=== PATIENT | female | born 1995 | race Two or more races ===

== ENCOUNTER 2018-05-10 04:00 | Emergency (ER) | payer BC ==
--- NOTE | 2018-05-10 04:29 | ED ---
Psychiatric Complaint - HPI Summary HPI Summary: 22 year old F BIB EMS and police to [facility] complains of suicidal ideation since one hour ago. Symptoms aggravated by nothing. Symptoms alleviated by nothing. Patient is intoxicated. She was out drinking with her friends. She went home by herself and began having suicidal thoughts. Patient has had suicidal thoughts before. She called her friends because she was scared of her thoughts, who then called 911. Patient has hx depression and anxiety. She currently does not have a therapist. She takes Prozac which is prescribed by [facility]. She has been inconsistent with her medication. - History Of Current Complaint Chief Complaint: EDMentalHealth Time Seen by Provider: 05/10/18 04:14 Hx Obtained From: Patient Onset/Duration: Sudden Onset, Lasting Hours - 1, Still Present Aggravating Factor(s): Nothing Alleviating Factor(s): Nothing - Allergies/Home Medications Allergies/Adverse Reactions: Allergies Allergy/AdvReac Type Severity Reaction Status Date / Time No Known Allergies Allergy Verified 05/10/18 04:15 Home Medications: Home Medications Fluoxetine HCl [Prozac] 20 mg PO DAILY 05/10/18 [History Confirmed 05/10/18] PMH/Surg Hx/FS Hx/Imm Hx Previously Healthy: No Sensory History: Reports: Hx Contacts or Glasses Opthamlomology History: Reports: Hx Contacts or Glasses Psychiatric History: Reports: Hx Anxiety, Hx Depression - Surgical History Surgery Procedure, Year, and Place: Tooth Implant 2014 Infectious Disease History: No Infectious Disease History: Denies: Traveled Outside the [place] in Last 30 Days - Social History Alcohol Use: Rare Hx Substance Use: No Substance Use Type: Reports: None Hx Tobacco Use: No Smoking Status (MU): Never Smoked Tobacco Review of Systems Negative: Fever Positive: Other - suicidal ideation, ETOH intoxication All Other Systems Reviewed And Are Negative: Yes Physical Exam - Summary Physical Exam Summary: Appearance: Well-appearing, Well-nourished, lying in bed comfortably Skin: Warm, dry, no obvious rash Eyes: sclera anicteric, no conjunctival pallor ENT: mucous membranes moist, pharynx appears normal Neck: Supple, nontender Respiratory: Clear to auscultation, no signs of respiratory distress Cardiovascular: Normal S1, S2. No murmurs. Normal distal pulses in tibial and radial bilaterally. Abdomen: Soft, nontender, normal active bowel sounds present Musculoskeletal: Normal, Strength/ROM Intact Neurological: A&Ox3, awake and alert, mentation is normal, speech is fluent and appropriate. Psychiatric: affect is normal, does not appear anxious or depressed. Patient is moderately intoxicated. Triage Information Reviewed: Yes Vital Signs On Initial Exam: Initial Vitals Temp Pulse Resp BP Pulse Ox 98.9 F 100 20 113/68 98 05/10/18 04:15 05/10/18 04:15 05/10/18 04:15 05/10/18 04:15 05/10/18 04:15 Vital Signs Reviewed: Yes Diagnostics - Vital Signs Vital Signs Temp Pulse Resp BP Pulse Ox 05/10/18 04:15 98.9 F 100 20 113/68 98 - Laboratory Result Diagrams: 05/10/18 04:29 05/10/18 10:21 Lab Statement: Any lab studies that have been ordered have been reviewed, and results considered in the medical decision making process. Course/Dx - Course Course Of Treatment: This is a 22-year-old woman coming in after a overdose of Motrin in a suicide gesture while intoxicated. She is medically cleared and will need a mental health evaluation once she is sober enough to undergo one. - Differential Dx/Clinical Impression Provider Diagnosis: Suicidal ideation Discharge - Sign-Out/Discharge Documenting (check all that apply): Sign-Out Patient Signing out patient TO: Kaushik Mendez - Awaiting MHE, pending dispo Receiving patient FROM: Agusto Perez - Discharge Plan Condition: Stable Disposition: ADMITTED TO [facility] Referrals: No Primary Care Phys,NOPCP [Primary Care Provider] - - Billing Disposition and Condition Condition: STABLE Disposition: Admitted to [facility] - Attestation Statements Document Initiated by Scribe: Yes Documenting Scribe: Carmina Craig Provider For Whom Jose De Jesus is Documenting (Include Credential): Agusto Perez M.D. Scribe Attestation: Carmina Mejia, scribed for Agusto Perez M.D. on 05/11/18 at 0211. Scribe Documentation Reviewed: Yes Provider Attestation: The documentation as recorded by the scribeCarmina accurately reflects the service I personally performed and the decisions made by me, Agusto Perez M.D.
[2018-05-10 04:37] LABS: ABS Basophils 0 10^3/ul (0-0.2); ABS Eosinophils 0 10^3/ul (0-0.6); ABS Lymphocytes 1.2 10^3/ul (1.0-4.8); ABS Monocytes 0.4 10^3/ul (0-0.8); ABS Neutrophils 4.2 10^3/ul (1.5-7.7); ABS Nucleated RBC 0 10^3/ul; Eosinophil % 0.8 % (0-6); Hematocrit 42 % (35-47); Hemoglobin 14.1 g/dl (12.0-16.0); Lymphocyte % 20.8 % (25-47); Mean Corpuscular HGB Conc 34 g/dl (31-36); Mean Corpuscular Hemoglobin 30 pg (27-31); Mean Corpuscular Volume 89 fL (80-97); Mean Platelet Volume 7.4 um3 (7.4-10.4); Nucleated Red Blood Cells % 0; Platelet Count 276 10^3/ul (150-450); Red Blood Count 4.69 10^6/ul (4.00-5.40); Red Cell Distribution Width 13 % (10.5-15); White Blood Count 5.9 10^3/ul (3.5-10.8)
[2018-05-10 04:55] LABS: EGFR Non-African American 97.5 (>60)
[2018-05-10 04:57] LABS: Urine Appearance Clear; Urine Blood Negative (Negative); Urine Ketones Negative (Negative); Urine Protein Negative (Negative); Urine Red Blood Cell Absent (Absent); Urine Specific Gravity 1.001 (1.010-1.030); Urine Urobilinogen Negative (Negative); Urine White Blood Cell Trace(0-5/hpf) (Absent)
[2018-05-10 04:58] LABS: Urine Color Colorless
--- NOTE | 2018-05-10 07:15 | ED ---
Progress - Progress Note Progress Note: This patient is signed out form Dr. Perez awaiting mental health evaluation. Course/Dx - Course Course Of Treatment: This is a 22-year-old woman coming in after a overdose of Motrin in a suicide gesture while intoxicated. She is medically cleared and will need a mental health evaluation once she is sober enough to undergo one. Patient signed out to Dr. Mattson pending MHE. - Diagnoses Provider Diagnoses: Suicidal ideation Discharge - Sign-Out/Discharge Documenting (check all that apply): Sign-Out Patient Signing out patient TO: Agusto Perez Receiving patient FROM: Kaushik Mendez - Discharge Plan Referrals: No Primary Care Phys,NOPCP [Primary Care Provider] - - Attestation Statements Document Initiated by Scribe: Yes Documenting Scribe: Isabel Garcia Provider For Whom Svetae is Documenting (Include Credential): Lenka Mendez MD Scribe Attestation: Isabel Mejia, scribed for Lenka Mendez MD on 05/11/18 at 0936. Scribe Documentation Reviewed: Yes Provider Attestation: The documentation as recorded by the scribeIsabel accurately reflects the service I personally performed and the decisions made by , Lenka Mendez MD
[2018-05-10 10:51] LABS: EGFR Non-African American 99.1 (>60)
[2018-05-10 19:56] VITALS: BP 105/66
== END 2018-05-10 20:45 | disposition short-term general hospital (02) ==
LOC: ED 04:00
DX: R45.851 Suicidal ideations (principal); F10.129 Alcohol abuse with intoxication, unspecified; F32.9 Major depressive disorder, single episode, unspecified
CPT/HCPCS: 36415; 80053; 80307; 80320; 80329; 81003; 81015; 84443; 84702; 85025; 87086; 93005; 99284; G0480

== ENCOUNTER 2018-07-27 01:21 | Emergency (ER) | payer BC ==
--- NOTE | 2018-07-27 03:44 | ED ---
Substance Abuse/Use - HPI Summary HPI Summary: Pt is a 23 year old F presenting to the ED with a chief complaint of intoxication. Her friends brought her in because she was vomiting and passed out , but she is presently feeling fine. - History Of Current Complaint Chief Complaint: EDSubstanceAbuse Stated Complaint: ETOH Time Seen by Provider: 07/27/18 03:27 Hx Obtained From: Patient Hx Last Menstrual Period: 07/07 Onset/Duration of Drug/ETOH Abuse: Hours Ingestion History: Type/Name Of Drug - EtOH Overdose Characteristics: Oral Severity Initially: Moderate Severity Currently: None Aggravating Factor(s): Nothing Alleviating Factor(s): Nothing Associated Signs And Symptoms: Vomiting - Allergies/Home Medications Allergies/Adverse Reactions: Allergies Allergy/AdvReac Type Severity Reaction Status Date / Time No Known Allergies Allergy Verified 05/10/18 04:15 PMH/Surg Hx/FS Hx/Imm Hx Previously Healthy: Yes Endocrine/Hematology History: Denies: Hx Diabetes Cardiovascular History: Denies: Hx Hypertension Sensory History: Reports: Hx Contacts or Glasses Opthamlomology History: Reports: Hx Contacts or Glasses Psychiatric History: Reports: Hx Anxiety, Hx Depression Denies: Hx Eating Disorder, Hx of Violent Episodes Against Others - Surgical History Surgery Procedure, Year, and Place: Tooth Implant 2014 - Immunization History Date of Tetanus Vaccine: utd Date of Influenza Vaccine: unk Infectious Disease History: Unable to Obtain/Confirm Infectious Disease History: Denies: Traveled Outside the US in Last 30 Days - Family History Known Family History: Negative: Renal Disease - Social History Alcohol Use: Occasionally Alcohol Amount: a lot Hx Substance Use: No Substance Use Type: Reports: None Hx Tobacco Use: No Smoking Status (MU): Never Smoked Tobacco Review of Systems Negative: Fever Positive: Vomiting All Other Systems Reviewed And Are Negative: Yes Physical Exam - Summary Physical Exam Summary: VITAL SIGNS: Reviewed. GENERAL: Patient is a well-developed and nourished female who is lying comfortable in the stretcher. Patient is not in any acute respiratory distress. HEAD AND FACE: No signs of trauma. No ecchymosis, hematomas or skull depressions. No sinus tenderness. EYES: PERRLA, EOMI x 2, No injected conjunctiva, no nystagmus. EARS: Hearing grossly intact. Ear canals and tympanic membranes are within normal limits. MOUTH: Oropharynx within normal limits. NECK: Supple, trachea is midline, no adenopathy, no JVD, no carotid bruit, no c- spine tenderness, neck with full ROM. CHEST: Symmetric, no tenderness at palpation LUNGS: Clear to auscultation bilaterally. No wheezing or crackles. CVS: Regular rate and rhythm, S1 and S2 present, no murmurs or gallops appreciated. ABDOMEN: Soft, non-tender. No signs of distention. No rebound no guarding, and no masses palpated. Bowel sounds are normal. EXTREMITIES: FROM in all major joints, no edema, no cyanosis or clubbing. NEURO: Alert and oriented x 3. No acute neurological deficits. Speech is normal and follows commands. SKIN: Dry and warm Triage Information Reviewed: Yes Vital Signs On Initial Exam: Initial Vitals Temp Pulse Resp BP Pulse Ox 97.8 F 82 16 108/70 99 07/27/18 01:35 07/27/18 01:35 07/27/18 01:35 07/27/18 01:35 07/27/18 01:35 Vital Signs Reviewed: Yes Diagnostics - Vital Signs Vital Signs Temp Pulse Resp BP Pulse Ox 07/27/18 01:35 97.8 F 82 16 108/70 99 - Laboratory Lab Statement: Any lab studies that have been ordered have been reviewed, and results considered in the medical decision making process. Course/Dx - Course Course Of Treatment: Pt is a 23 y/o F presenting to the ED intoxicated. Her friends brought her in originally because she was vomiting and passed out but she is presently feeling fine. If she can keep fluids down she will be sent home. The pt is stable. - Diagnoses Provider Diagnoses: Alcohol intoxication Discharge - Sign-Out/Discharge Documenting (check all that apply): Patient Departure - Discharge Plan Condition: Stable Disposition: HOME Referrals: No Primary Care Phys,NOPCP [Primary Care Provider] - - Attestation Statements Document Initiated by Scribe: Yes Documenting Scribe: Екатерина Carrillo Provider For Whom Marshallibe is Documenting (Include Credential): Wilbert Knapp MD. Scribe Attestation: Екатерина Mejia, scribed for Wilbert Knapp MD. on 07/27/18 at 0345.
[2018-07-27 03:55] VITALS: BP 119/78
== END 2018-07-27 03:55 | disposition home or self-care (01) ==
LOC: ED 01:21
DX: F10.129 Alcohol abuse with intoxication, unspecified (principal)
CPT/HCPCS: 99282

== ENCOUNTER 2018-12-29 19:58 | Emergency (ER) | payer BC ==
--- NOTE | 2018-12-29 20:33 | ED ---
Psychiatric Complaint - HPI Summary HPI Summary: Patient is a 23 y/o F presenting to ED with complaints of suicidal ideation for the past few days. Per triage note, "Seen by therapist today. Hx suicide attempt within past year. Denies definitive plan but has several ideas." Patient states that suicide attempt occurred this past April, claims that she took around 30-40 Advil tablets, notes she was intoxicated at the time of the episode and had been fighting with depression. She notes that she has been experiencing anxiety recently and in the past few days she has been "triggered" by various social interactions with friends and general stress. Patient is a student at [employer]. Patient is on Xanax. PMHx of depression, anxiety. On triage , pain is denied, nothing is noted to aggravate/alleviate Sx. Home medications and allergies are reviewed. - History Of Current Complaint Chief Complaint: EDSuicidal Time Seen by Provider: 12/29/18 20:16 Hx Obtained From: Patient Hx Last Menstrual Period: 07/07 Onset/Duration: Lasting Days, Still Present Timing: Days Severity Currently: None - pain denied Character: Depressed, Anxious Aggravating Factor(s): Recent Stress Alleviating Factor(s): Nothing Has Suicidal: Reports: Thoughts, With A Plan, Has Prior Attempt(s) - Allergies/Home Medications Allergies/Adverse Reactions: Allergies Allergy/AdvReac Type Severity Reaction Status Date / Time No Known Allergies Allergy Verified 05/10/18 04:15 Home Medications: Home Medications Cymbalta CAP* 30 mg PO DAILY 12/29/18 [History Confirmed 12/29/18] Xanax TAB* 0.25 mg PO DAILY PRN 12/29/18 [History Confirmed 12/29/18] PMH/Surg Hx/FS Hx/Imm Hx Endocrine/Hematology History: Denies: Hx Diabetes Cardiovascular History: Denies: Hx Hypertension Sensory History: Reports: Hx Contacts or Glasses Opthamlomology History: Reports: Hx Contacts or Glasses Psychiatric History: Reports: Hx Anxiety, Hx Depression Denies: Hx Eating Disorder, Hx of Violent Episodes Against Others - Surgical History Surgery Procedure, Year, and Place: Tooth Implant 2014 - Immunization History Date of Tetanus Vaccine: utd Date of Influenza Vaccine: unk Infectious Disease History: No Infectious Disease History: Denies: Traveled Outside the [place] in Last 30 Days - Family History Known Family History: Negative: Renal Disease - Social History Alcohol Use: Occasionally Alcohol Amount: a lot Hx Substance Use: No Substance Use Type: Reports: None Hx Tobacco Use: No Smoking Status (MU): Never Smoked Tobacco Review of Systems Negative: Fever - on vitals, temp is 98.1 F Psychological: Other - POSITIVE - SI Positive: Anxious, Depressed All Other Systems Reviewed And Are Negative: Yes Physical Exam - Summary Physical Exam Summary: VITAL SIGNS: Reviewed. GENERAL: Patient is a well-developed and nourished female who is lying comfortable in the stretcher. Patient is not in any acute respiratory distress. HEAD AND FACE: No signs of trauma. No ecchymosis, hematomas or skull depressions. No sinus tenderness. EYES: PERRLA, EOMI x 2, No injected conjunctiva, no nystagmus. EARS: Hearing grossly intact. Ear canals and tympanic membranes are within normal limits. MOUTH: Oropharynx within normal limits. NECK: Supple, trachea is midline, no adenopathy, no JVD, no carotid bruit, no c- spine tenderness, neck with full ROM. CHEST: Symmetric, no tenderness at palpation LUNGS: Clear to auscultation bilaterally. No wheezing or crackles. CVS: Regular rate and rhythm, S1 and S2 present, no murmurs or gallops appreciated. ABDOMEN: Soft, non-tender. No signs of distention. No rebound no guarding, and no masses palpated. Bowel sounds are normal. EXTREMITIES: FROM in all major joints, no edema, no cyanosis or clubbing. NEURO: Alert and oriented x 3. No acute neurological deficits. Speech is normal and follows commands. SKIN: Dry and warm Triage Information Reviewed: Yes Vital Signs On Initial Exam: Initial Vitals Temp Pulse Resp BP Pulse Ox 98.1 F 86 16 133/93 98 12/29/18 20:06 12/29/18 20:06 12/29/18 20:06 12/29/18 20:06 12/29/18 20:06 Vital Signs Reviewed: Yes Diagnostics - Vital Signs Vital Signs Temp Pulse Resp BP Pulse Ox 12/29/18 20:06 98.1 F 86 16 133/93 98 - Laboratory Lab Statement: Any lab studies that have been ordered have been reviewed, and results considered in the medical decision making process. Course/Dx - Course Course Of Treatment: Patient is a 23 y/o F presenting to ED with complaints of suicidal ideation for the past few days. Per triage note, "Seen by therapist today. Hx suicide attempt within past year. Denies definitive plan but has several ideas". Patient states that suicide attempt occurred this past April, claims that she took around 30-40 Advil tablets, notes she was intoxicated at the time of the episode and had been fighting with depression. She notes that she has been experiencing anxiety recently and in the past few days she has been "triggered" by various social interactions with friends and general stress. Patient is a student at [employer]. Patient is on Xanax. PMHx of depression , anxiety. On physical exam, patient expresses suicidal ideation. Patient was medically cleared for MHE. 2229 - Patient's case had been reviewed by Dr. Noriega. Patient will be discharged to home. She states that she is feeling better and will stay safe with a friend rosalio. Patient's parents will drive up tomorrow to [place] to be with her and will follow up with [facility]. - Differential Dx/Clinical Impression Provider Diagnosis: Depression - Physician Notifications Discussed Care Of Patient With: Fredrick Noriega Time Discussed With Above Provider: 22:30 Instructed by Provider To: Other - 2229 - Patient's case had been reviewed by Dr. Noriega. Patient will be discharged to home. She states that she is feeling better and will stay safe with a friend rosalio. Patient's parents will drive up tomorrow to [place] to be with her and will follow up with [facility]. Discharge - Sign-Out/Discharge Documenting (check all that apply): Patient Departure - discharge Patient Received Moderate/Deep Sedation with Procedure: No - Discharge Plan Condition: Stable Disposition: HOME Referrals: No Primary Care Phys,NOPCP [Primary Care Provider] - - Attestation Statements Document Initiated by Scribe: Yes Documenting Scribe: JOSE MIRZA Provider For Whom Jose De Jesus is Documenting (Include Credential): MD Marshall MEEKibsuzie Attestation: JOSE Mejia, aideeed for SHADI BELTRAN MD on 12/29/18 at 2305. Status of Scribe Document: Ready
[2018-12-29 22:51] VITALS: BP 124/82
== END 2018-12-29 22:48 | disposition home or self-care (01) ==
LOC: ED 19:58
DX: F32.9 Major depressive disorder, single episode, unspecified (principal)
CPT/HCPCS: 99285

== ENCOUNTER 2019-01-04 18:39 | Inpatient (IN) | payer BC ==
[2019-01-04 19:32] LABS: ABS Basophils 0 10^3/ul (0-0.2); ABS Eosinophils 0.1 10^3/ul (0-0.6); ABS Lymphocytes 1.5 10^3/ul (1.0-4.8); ABS Monocytes 0.4 10^3/ul (0-0.8); ABS Nucleated RBC 0 10^3/ul; Eosinophil % 1.8 %; Hematocrit 42 % (33-41); Hemoglobin 14.2 g/dL (12.0-16.0); Lymphocyte % 24.7 %; Mean Corpuscular HGB Conc 34 g/dL (31-36); Mean Corpuscular Hemoglobin 31 pg (27-31); Mean Corpuscular Volume 90 fL (80-97); Mean Platelet Volume 7.2 fL (7.4-10.4); Nucleated Red Blood Cells % 0; Platelet Count 297 10^3/uL (150-450); Red Blood Count 4.67 10^6 /uL (3.70-4.87); Red Cell Distribution Width 12 % (10.5-15)
[2019-01-04 19:49] LABS: ALT 11 U/L (7-52); AST 16 U/L (13-39); Albumin 4.3 g/dL (3.2-5.2); Albumin/Globulin Ratio 1.7 (1-3); Alkaline Phosphatase 46 U/L (34-104); Anion Gap 5 mmol/L (2-11); Blood Urea Nitrogen 12 mg/dL (6-24); CO2 Carbon Dioxide 28 mmol/L (22-32); Calcium 9.1 mg/dL (8.6-10.3); Chloride 105 mmol/L (101-111); EGFR African American 116.9 (>60); EGFR Non-African American 96.6 (>60); Globulin 2.6 g/dL (2-4); Glucose 85 mg/dL (70-100); Potassium 4.2 mmol/L (3.5-5.0); Sodium 138 mmol/L (135-145); Total Protein 6.9 g/dL (6.4-8.9)
[2019-01-04 19:56] LABS: HCG Pregnancy < 0.60 mIU/mL
--- NOTE | 2019-01-04 19:56 | ED ---
Psychiatric Complaint - HPI Summary HPI Summary: Patient is a 23-year-old female who presents emergency department for suicidal ideations. Patient is a student at [employer] and lives by herself. Patient notes a history of depression and currently follows with therapist at [employer]. She is currently on Cymbalta and Xanax as needed. Patient has been seen in the ER in the past after suicidal attempts. Patient was seen in the ER last week for similar symptoms. Patient states she has been feeling very depressed and suicidal over the last several days. Patient states today she tied an Frank wrap around her neck and fell asleep hoping it would harm her. Patient otherwise denies drug or alcohol use today or other suicidal attempts. Symptoms are severe in severity. No current modifying actress. - History Of Current Complaint Chief Complaint: EDSuicidal Time Seen by Provider: 01/04/19 19:15 Hx Obtained From: Patient Hx Last Menstrual Period: 07/07 - Allergies/Home Medications Allergies/Adverse Reactions: Allergies Allergy/AdvReac Type Severity Reaction Status Date / Time No Known Allergies Allergy Verified 01/04/19 18:45 PMH/Surg Hx/FS Hx/Imm Hx Previously Healthy: Yes Endocrine/Hematology History: Denies: Hx Diabetes Cardiovascular History: Denies: Hx Hypertension Sensory History: Reports: Hx Contacts or Glasses Opthamlomology History: Reports: Hx Contacts or Glasses Psychiatric History: Reports: Hx Anxiety, Hx Depression Denies: Hx Eating Disorder, Hx of Violent Episodes Against Others - Surgical History Surgery Procedure, Year, and Place: Tooth Implant 2014 - Immunization History Date of Tetanus Vaccine: utd Date of Influenza Vaccine: unk Infectious Disease History: No Infectious Disease History: Denies: Traveled Outside the [place] in Last 30 Days - Family History Known Family History: Negative: Renal Disease - Social History Occupation: Student Lives: Alone Alcohol Use: Occasionally Alcohol Amount: a lot Hx Substance Use: No Substance Use Type: Reports: None Hx Tobacco Use: No Smoking Status (MU): Never Smoked Tobacco Review of Systems Cardiovascular: Negative Respiratory: Negative Gastrointestinal: Negative Musculoskeletal: Negative Neurological: Negative Positive: Depressed, Other - SI All Other Systems Reviewed And Are Negative: Yes Physical Exam Triage Information Reviewed: Yes Vital Signs On Initial Exam: Initial Vitals Temp Pulse Resp BP Pulse Ox 98.4 F 82 16 124/79 97 01/04/19 18:45 01/04/19 18:45 01/04/19 18:45 01/04/19 18:45 01/04/19 18:45 Vital Signs Reviewed: Yes Appearance: Positive: Well-Appearing - Pt. sitting on bed in NAD. Pleasant and cooperative. Skin: Positive: Warm, Dry Head/Face: Positive: Normal Head/Face Inspection Eyes: Positive: Normal, EOMI Neurological: Positive: Normal, CN Intact II-III Psychiatric: Positive: Affect/Mood Appropriate Diagnostics - Vital Signs Vital Signs Temp Pulse Resp BP Pulse Ox 01/04/19 18:45 98.4 F 82 16 124/79 97 - Laboratory Lab Results: Lab Results 01/04/19 01/04/19 Range/Units 19:26 19:26 WBC 6.0 (3.5-10.8) 10^3/uL RBC 4.67 (3.70-4.87) 10^6 /uL Hgb 14.2 (12.0-16.0) g/dL Hct 42 H (33-41) % MCV 90 (80-97) fL MCH 31 (27-31) pg MCHC 34 (31-36) g/dL RDW 12 (10.5-15) % Plt Count 297 (150-450) 10^3/uL MPV 7.2 L (7.4-10.4) fL Neut % (Auto) 66.1 % Lymph % (Auto) 24.7 % [place] % (Auto) 7.0 % Eos % (Auto) 1.8 % Baso % (Auto) 0.4 % Absolute Neuts (auto) 4.0 (1.5-7.7) 10^3/ul Absolute Lymphs (auto) 1.5 (1.0-4.8) 10^3/ul Absolute Monos (auto) 0.4 (0-0.8) 10^3/ul Absolute Eos (auto) 0.1 (0-0.6) 10^3/ul Absolute Basos (auto) 0 (0-0.2) 10^3/ul Absolute Nucleated RBC 0 10^3/ul Nucleated RBC % 0 Sodium 138 (135-145) mmol/L Potassium 4.2 (3.5-5.0) mmol/L Chloride 105 (101-111) mmol/L Carbon Dioxide 28 (22-32) mmol/L Anion Gap 5 (2-11) mmol/L BUN 12 (6-24) mg/dL Creatinine 0.75 (0.51-0.95) mg/dL Est GFR ( Amer) 116.9 (>60) Est GFR (Non-Af Amer) 96.6 (>60) BUN/Creatinine Ratio 16.0 (8-20) Glucose 85 (70-100) mg/dL Calcium 9.1 (8.6-10.3) mg/dL Total Bilirubin 0.40 (0.2-1.0) mg/dL AST 16 (13-39) U/L ALT 11 (7-52) U/L Alkaline Phosphatase 46 (34-104) U/L Total Protein 6.9 (6.4-8.9) g/dL Albumin 4.3 (3.2-5.2) g/dL Globulin 2.6 (2-4) g/dL Albumin/Globulin Ratio 1.7 (1-3) TSH Pending Beta HCG, Quant Pending Salicylates Pending Acetaminophen Pending Serum Alcohol Pending Result Diagrams: 01/04/19 19:26 01/04/19 19:26 Lab Statement: Any lab studies that have been ordered have been reviewed, and results considered in the medical decision making process. Course/Dx - Course Course Of Treatment: Pt. presenting for SI. She is medically cleared. Pending MHE. Pt. moved to [facility] and MHE performed. Psychiatry was consulted who recommends admission. Plan for re-evaluation and admisison in the a.m. Pt. signed out to Dr. Perez. - Differential Dx/Clinical Impression Differential Diagnosis/HQI/PQRI: Positive: Depression, Suicidal Ideation Provider Diagnosis: Suicidal ideation, Depression Discharge - Sign-Out/Discharge Documenting (check all that apply): Sign-Out Patient Signing out patient TO: Agusto Perez - Discharge Plan Referrals: No Primary Care Phys,NOPCP [Primary Care Provider] -
[2019-01-04 20:18] LABS: Acetaminophen < 15 mcg/mL; Alcohol < 10 mg/dL (<10); Salicylate < 2.50 mg/dL (<30)
[2019-01-04 20:33] LABS: TSH (Thyroid Stimulating Horm) 1.16 mcIU/mL (0.34-5.60)
--- NOTE | 2019-01-05 02:45 | ED ---
Progress - Progress Note Progress Note: RECEIVING SIGN OUT AT SHIFT CHANGE FROM AVANI ANGELES PENDING MH ADMISSION. A 23 y/o F who is a [employer] student presents to ED for MHE due to SI. - Consult/PCP Time Called: 18:39 Course/Dx - Course Course Of Treatment: RECEIVING SIGN OUT AT SHIFT CHANGE FROM AVANI ANGELES PENDING MH ADMISSION. A 23 y/o F who is a [employer] student presents to ED for MHE due to SI. Pt will be signed out to Dr. Locke at shift change pending MH re-eval and admission. - Diagnoses Provider Diagnoses: Depression, Suicidal ideation Discharge - Sign-Out/Discharge Documenting (check all that apply): Sign-Out Patient, Receiving Sign-Out Signing out patient TO: Puneet Locke - pending MH admission Receiving patient FROM: Papi Angeles - pending MH admission Patient Received Moderate/Deep Sedation with Procedure: No - Discharge Plan Condition: Good [place] [place] Disposition and Condition Condition: GOOD Disposition: Psychiatric Facility [facility] - Attestation Statements Document Initiated by Scribe: Yes Documenting Scribe: Chidi Li Provider For Whom Scribe is Documenting (Include Credential): Dr. Agusto Perez MD Scribe Attestation: Chidi Mejia scribed for Dr. Agusto Perez MD on 01/05/19 at 1925. Scribe Documentation Reviewed: Yes Provider Attestation: The documentation as recorded by the Chidi peterson accurately reflects the service I personally performed and the decisions made by me, Dr. Agusto Perez MD Status of Scribe Document: Viewed
--- NOTE | 2019-01-05 06:59 | ED ---
Progress - Progress Note Progress Note: Patient is received as a sign-out from Dr. Perez to Dr. Locke at 0700 shift change pending re-eval and disposition. 0838 - Patient's case had been reviewed by Dr. Kaye, patient will be voluntarily admitted to [facility] [place]. - Consult/PCP Time Called: 18:39 Course/Dx - Diagnoses Provider Diagnoses: Depression, Suicidal ideation - Provider Notifications Discussed Care Of Patient With: Zoie Kaye Time Discussed With Above Provider: 08:38 Instructed by Provider To: Other - Patient's case had been reviewed by Dr. Kaye, patient will be voluntarily admitted to [facility]. Discharge - Sign-Out/Discharge Documenting (check all that apply): Patient Departure - admit Patient Received Moderate/Deep Sedation with Procedure: No - Discharge Plan Condition: Good Disposition: PSYCHIATRIC FACILITY[place] Referrals: No Primary Care Phys,NOPCP [Primary Care Provider] - - Attestation Statements Document Initiated by Scribe: Yes Documenting Scribe: JOSE MIRZA Provider For Whom Scribe is Documenting (Include Credential): KAITLYNN LOCKE MD Scribe Attestation: JOSE Mejia, scribed for KAITLYNN LOCKE MD on 01/05/19 at 0848. Status of Scribe Document: Ready
[2019-01-05] MEDS ORDERED: Al Hydrox/Mg Hydrox/Simet LIQ* 30 ML UDC PO PRN (08:49)
[2019-01-05] MEDS ORDERED: Acetaminophen TAB* 325 MG PO PRN (08:49)
--- NOTE | 2019-01-05 10:33 | HP ---
H&P (Free Text) History and Physical: Justification for admission: Immediate Safety. CC " Fine" The patient was brought to [facility] by friends after she voiced suicidal ideation with a plan to hang herself with a cloth. She felt abandoned by her two friends who started dating and have not been including her in things anymore. She said that they were a large part of her support system and not having access to them anymore makes her fell more anxious and depressed. She thought about wrapping a cloth around her next to end her life and called to tell her friend of her plan. Denied access to firearms or stockpiles of medications. She reported adequate sleep and appetite. The patient denied homicidal ideation intent or plan. The patient denied auditory and/ or visual hallucinations. MDD Reported feeling depressed or having diminished interest in hobbies or interests which were present in the past , for most of the time, lasting more than 2 weeks. Lately having a feelings of being empty inside, feelings of hopelessness or worthless. Denied unintentional weight loss or appetite . Denied interruption of sleep or feeling tired throughout the day. Denied loss of energy or lack of motivation to complete tasks. Anxiety Reported having panic attacks in the past and worries most the time time. Bipolar Denied symptoms of adalgisa such as having many ideas at once. Denied increased talkativeness where no one can interrupt. Denied feeling irritable most of the time while having an persistent abundance of energy most of the day without the use of energy drinks, stimulants, or recreational drug use. Denied an increase in intensity in goal directed activities. Denied having the decreased need to sleep for days , having prolonged elevated heighted mood , or feeling on top of the world. Denied impulsive risky sexual encounters. Denied spending money recklessly , going on spending sprees wiping out savings. Denied impulsively traveling out of town or country, having super benítez, and unrealistic wealth or fame. Psychosis Does not endorse hearing things that other people do not hear or seeing things other people do not see. Denied feeling that TV is making references. Denied feeling that people are spying , following , or reading their thoughts. Phobias: Patient denied having excessive fear of a particular thing or situation. Eating disorders: Patient denied having excessive eating habits or feelings of guilt after eating. Denied repeated episodes of self induced vomiting after eating. PTSD Denied flashbacks, nightmares and avoidance of a prior traumatic event. PAST PSYCHIATRIC HISTORY: Prior Diagnosis : Major depressive disorder, Generalized anxiety disorder History of past Psychiatric Hospitalizations: No prior psychiatric admission. History of past suicide/homicide attempts : 1 past suicide attempts by overdosing with 30 Advil. Denied past homicidal incidents. Outpatient follow-up: [facility] Medications: Past trials of medications include prozac, lexapro with poor clinical response, no adverse reactions. Current medications include cymbalta 60mg daily and xanax Guardianship: None. FAMILY HISTORY: - Suicide: Cousin attempted suicide. - Mental illness: Denied a history of mental health in immediate family members. - Substance abuse: Denied substance abuse among family members. SUBSTANCE ABUSE HISTORY: Denied using tobacco, heroin and cocaine other illicit substances. Denied abusing pills not prescribed . Denied past Substance abuse treatment. - EtOH: drinks during social occasions once per week. 3-4 drinks at most 8 drinks. No prior DUI or blackouts. - Substance abuse treatment: Denied past substance abuse treatment SOCIAL HISTORY: She was raised by both parents and is from [facility]. 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 She is single no children and lives in [place] - Legal history: Denied - service history: Denied PAST MEDICAL HISTORY: Skin Eczema. - Allergies: Denied drug or other allergies. Physical Exam: Please see ED note Mental Status Exam on Admission APPEARANCE : 23 year old female who appears stated age. Patient is not malodourous, and appears to have fair hygiene and grooming. BEHAVIOR: Cooperative , calm EYE CONTACT: Fair PSYCHOMOTOR ACTIVITY: No psychomotor agitation or retardation. MOVEMENTS: No abnormal movements observed. SPEECH : Normal rate, rhythm, volume and tone. MOOD : " Fine" AFFECT : Type is anxious, Range is restricted, depth is shallow, Mood congruent, Stable THOUGHT PROCESS: formulated and organized in a logical, linear goal directed manner. No flight of ideas , neologism (made up words) , perseveration , tangential , loose associations , or circumstantiality. THOUGHT CONTENT: no delusions, preoccupations, obsessions, phobias or preoccupations. PERCEPTION: No current auditory or visual hallucinations. Doesnt appear to be responding to internal cues. No evidence of depersonalization , de-realization, or illusions SUICIDALITY Recent suicidal ideation with plan. HOMICIDALITY Denied homicidal ideation, intent or plan. Insight/judgment: Poor insight and judgment ORIENTATION: Oriented to self, location, and time. Diagnosis on Admission:Major depressive disorder, Generalized anxiety disorder Assessment: 23 year old female with history of Major depressive disorder, Generalized anxiety disorder came to the hospital for suicidal ideation with plan and was admitted to the BSU at [facility]. Plan #Admit to BSU, Q15 minute observation. Start regular diet. Encourage participation in activities on the milieu. #Patient evaluated in ED and was determined by the emergency room Physician to be medically stable for admission to the BSU. # Justification for Admission: For immediate safety per outlined in the [place] Mental Hygiene Code. # Voluntary admission. The patient requires inpatient admission at this time to assure safety, receive treatment and work toward stabilization. # Labs ordered: CBC, CMP, UDS, TSH, HBA1c, TSH, Toxicology screen, Urine analysis, and lipid profile. #B-HCG was ordered and results are negative. # Obtain collateral information once release is signed. # Collaboration with Social Work to assist with disposition and after care. # Will increase cymbalta to 80mg and start buspar 15mg BID for anxiety # MMPI #Advised about dangers of combining cymbalta and xanax with alcohol. #Goals before discharge include: gain insight into mental illness. The risks, benefits, and alternative treatment options were discussed as well as of the risks of refusing treatment. After this discussion and an acknowledgement of this understanding was made. A risk/ benefit assessment of treatment was considered and discussed with the patient. When comparing the risks of treatment with the dangers of not receiving treatment, the benefits of treatment outweigh the treatment risks at this time. Risks of suicidal ideation , behavioral changes, dystonia, movement disorders, cardiac conduction changes , serotonin syndrome, metabolic risks and NMS were among some of the risks discussed. Acetaminophen (Tylenol Tab*) 650 mg PO Q4H PRN PRN Reason: for pain; or Temp >101 F Al Hydrox/Mg Hydrox/Simethicone (Maalox Plus*) 30 ml PO Q4H PRN PRN Reason: INDIGESTION Buspirone HCl (Buspar Tab *) 15 mg PO BID MELANIE Duloxetine HCl (Cymbalta Cap*) 60 mg PO DAILY MELANIE Multivitamins (Theragran Tab*) 1 tab PO DAILY MELANIE
[2019-01-05] MEDS ORDERED: DULoxetine DR CAP* 60 MG CAP.DR PO SCH (11:00)
[2019-01-05 11:10] LABS: Urine Appearance Cloudy; Urine Bacteria Absent (Absent); Urine Bilirubin Negative (Negative); Urine Blood Negative (Negative); Urine Color Yellow; Urine Glucose Negative (Negative); Urine Ketones Negative (Negative); Urine Nitrite Negative (Negative); Urine Protein Negative (Negative); Urine Red Blood Cell Trace(0-2/hpf) (Absent); Urine Specific Gravity 1.019 (1.010-1.030); Urine Squamous Epithelial Cell Present (Absent); Urine Urobilinogen Negative (Negative); Urine White Blood Cell Trace(0-5/hpf) (Absent)
[2019-01-05 11:16] LABS: Urine Benzodiazepine Screen Presumptive Positive (None Detect); Urine Opiates Screen None Detected (None Detect)
[2019-01-05] MEDS: Vitamin THERAPEUTIC TAB PO SCH (14:22)
[2019-01-05] MEDS: busPIRone TAB* 15 MG PO SCH ×2 (14:22→20:28)
[2019-01-05] MEDS ORDERED: DULoxetine DR CAP* 20 MG CAP.DR PO ONE (14:30)
[2019-01-05] MEDS ORDERED: DULoxetine DR CAP* 30 MG CAP.DR PO ONE (14:30)
--- NOTE | 2019-01-06 09:50 | PN ---
Subjective - Subjective Date of Service: 01/06/19 Service Type: [id number] Hosp care 35 min high complexity Subjective: Nursing Report: Patient was visible on unit, no chemical restraints or PRNs. Slept overnight without incident. Attending group activities. CC: "I am doing better Patient met with her family yesterday during visitation and remarked that the visit went well. She reported having less anxiety today and is not sure of it is from medication or being in the hospital. Patient was seen and evaluated by this provider. The patient reported she feels safe on the unit and is interacting with peers. She reported having an adequate appetite and sleep. The patient reports attending and participating in day groups. Per nursing no behavioral issues or overnight events reported. Patient reported that she is tolerating medications without side effects. Objective - General Observations Appears Stated Age: Yes Stature: WNL Posture: WNL Eye Contact: Average Behavior/Activity: WNL - Interaction Observations Attitude Towards Examiner: Cooperative Stated Mood: Anxious Affect: Restricted Speech Pattern/Tone: Clear Thought Process: Coherent Perception: WNL Thought Content: WNL, Self-Deprecatory Hallucination Type: None Delusion Type: None - Cognitive Function Orientation: A&O x 4 Level of Consciousness: Awake Cognition: WNL Insight: WNL Judgment Within Normal Limits: No Ability to Make Reasonable Decisions: Mildly Impaired - Medication Compliance Cooperative with Inpatient Medication Regimen: Yes - Group Participation Participates in Group Activities: Yes Assessment - Assessment Merits Inpatient Hospitalization: For Immediate Safety Clinical Impression: 23 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 Staff pass and computer access #The patient requires inpatient admission at this time to assure safety, receive treatment and work toward stabilization. #Family meeting scheduled for today # Collaboration with Social Work to assist with disposition and after care. # Cymbalta to 80mg and buspar &15mg BID for anxiety # MMPI Tentative Discharge or Saturday #So far patient feels that buspar may replace xanax use for anxiety Continued Medication Management: Continue Outpt Medication Medications: Current Medications Acetaminophen (Tylenol Tab*) 650 mg PO Q4H PRN PRN Reason: for pain; or Temp >101 F Al Hydrox/Mg Hydrox/Simethicone (Maalox Plus*) 30 ml PO Q4H PRN PRN Reason: INDIGESTION Buspirone HCl (Buspar Tab *) 15 mg PO BID [facility] Last Admin: 01/05/19 20:28 Dose: 15 mg Duloxetine HCl (Cymbalta Cap*) 80 mg PO DAILY [facility] Multivitamins (Theragran Tab*) 1 tab PO DAILY [facility] Last Admin: 01/05/19 14:22 Dose: Not Given - Discharge Plan Discharge Plan: Inpatient Hospitalization
[2019-01-06] MEDS: Vitamin THERAPEUTIC TAB PO SCH (10:16)
[2019-01-06] MEDS: busPIRone TAB* 15 MG PO SCH ×2 (10:16→20:47)
[2019-01-06] MEDS: DULoxetine DR CAP* 20 MG CAP.DR PO SCH (11:54)
[2019-01-07] MEDS: Vitamin THERAPEUTIC TAB PO SCH (09:21)
[2019-01-07] MEDS: busPIRone TAB* 15 MG PO SCH ×2 (09:21→21:10)
[2019-01-07] MEDS: DULoxetine DR CAP* 20 MG CAP.DR PO SCH (09:21)
--- NOTE | 2019-01-07 14:32 | PN ---
Subjective - Subjective Date of Service: 01/07/19 Service Type: [id number] Hosp care 35 min high complexity Subjective: Nursing Report: Patient was visible on unit, no chemical restraints or PRNs. Slept overnight without incident. Attending group activities. CC: "I am ready to go home Patient met with her family today and she is excited to leave tomorrow. She plans to go back to school and maybe completed summer school. Patient was seen and evaluated by this provider. The patient reported she feels safe on the unit and is interacting with peers. She reported having an adequate appetite and sleep. The patient reports attending and participating in day groups. Per nursing no behavioral issues or overnight events reported. Patient reported that she is tolerating medications without side effects. Objective - General Observations Appears Stated Age: Yes Stature: WNL Posture: WNL Eye Contact: Average Behavior/Activity: WNL - Interaction Observations Attitude Towards Examiner: Cooperative Stated Mood: Euthymic Affect: Blunted Speech Pattern/Tone: Clear Thought Process: Coherent Perception: WNL Thought Content: WNL Hallucination Type: None Delusion Type: None - Cognitive Function Orientation: A&O x 4 Level of Consciousness: Awake Cognition: WNL Insight: WNL Judgment Within Normal Limits: Yes - Medication Compliance Cooperative with Inpatient Medication Regimen: Yes - Group Participation Participates in Group Activities: Yes Assessment - Assessment Clinical Impression: 23 year old female [employer] student presented [place] [facility] [place] ideation and was admitted to the BSU Plan - Plan Treatment Plan: Name: NEENA CELESTE Birthdate: 1995 [id number] #Q30 minute observation. Staff pass and computer access #The patient requires inpatient admission at this time to assure safety, receive treatment and work toward stabilization. #Family meeting went well and family in agreement with discharge plan # Collaboration with Social Work to assist with disposition and after care. # Cymbalta to 80mg and buspar 15mg BID for anxiety # MMPI results consistent with presentation depression and anxiety Tentative Discharge Vital Signs Temp Pulse Resp BP Pulse Ox 97.9 F 105 14 101/84 99 01/07/19 08:33 01/07/19 08:33 01/07/19 11:28 01/07/19 08:33 01/07/19 08:33 Laboratory Results WBC 6.0 10^3/uL (3.5-10.8) 01/04/19: RBC 4.67 10^6 /uL (3.70-4.87) 01/04/19 19: Hgb 14.2 g/dL (12.0-16.0) 01/04/19 19: Hct 42 % (33-41) H 01/04/19 19: MCV 90 fL (80-97) 01/04/19 19: MCH 31 pg (27-31) 01/04/19: MCHC 34 g/dL (31-36) 01/04/19 19: RDW 12 % (10.5-15) 01/04/19: Plt Count 297 10^3/uL (150-450) 01/04/19: MPV 7.2 fL (7.4-10.4) L 01/04/19: Neut % (Auto) 66.1 % 01/04/19: Lymph % (Auto) 24.7 % 01/04/19: [place] % (Auto) 7.0 % 01/04/19 19: Eos % (Auto) 1.8 % 01/04/19: Baso % (Auto) 0.4 % 01/04/19: Absolute Neuts (auto) 4.0 10^3/ul (1.5-7.7) 01/04/19: Absolute Lymphs (auto) 1.5 10^3/ul (1.0-4.8) 01/04/19: Absolute Monos (auto) 0.4 10^3/ul (0-0.8) 01/04/19: Absolute Eos (auto) 0.1 10^3/ul (0-0.6) 01/04/19: Absolute Basos (auto) 0 10^3/ul (0-0.2) 01/04/19: Absolute Nucleated RBC 0 10^3/ul 01/04/19 19: Nucleated RBC % 0 01/04/19 19: Sodium 138 mmol/L (135-145) 01/04/19 19: Potassium 4.2 mmol/L (3.5-5.0) 01/04/19: Chloride 105 mmol/L (101-111) 01/04/19 19:26 Carbon Dioxide 28 mmol/L (22-32) 01/04/19 19:26 Anion Gap 5 mmol/L (2-11) 01/04/19 19:26 BUN 12 mg/dL (6-24) 01/04/19 19:26 Creatinine 0.75 mg/dL (0.51-0.95) 01/04/19 19:26 Est GFR ( Amer) 116.9 (>60) 01/04/19 19:26 Est GFR (Non-Af Amer) 96.6 (>60) 01/04/19 19:26 BUN/Creatinine Ratio 16.0 (8-20) 01/04/19 19:26 Glucose 85 mg/dL (70-100) 01/04/19 19:26 Hemoglobin A1c 5.2 % (4.0-5.6) 01/07/19 07:40 Calcium 9.1 mg/dL (8.6-10.3) 01/04/19 19:26 Total Bilirubin 0.40 mg/dL (0.2-1.0) 01/04/19 19:26 AST 16 U/L (13-39) 01/04/19 19:26 ALT 11 U/L (7-52) 01/04/19 19:26 Alkaline Phosphatase 46 U/L (34-104) 01/04/19 19:26 Total Protein 6.9 g/dL (6.4-8.9) 01/04/19 19: Albumin 4.3 g/dL (3.2-5.2) 01/04/19 19:26 Globulin 2.6 g/dL (2-4) 01/04/19 19:26 Albumin/Globulin Ratio 1.7 (1-3) 01/04/19 19:26 Triglycerides 49 mg/dL 01/07/19 07:40 Cholesterol 177 mg/dL 01/07/19 07:40 LDL Cholesterol 95 mg/dL 01/07/19 07:40 HDL Cholesterol 72.0 mg/dL 01/07/19 07:40 TSH 1.16 mcIU/mL (0.34-5.60) 01/04/19 19:26 Beta HCG, Quant < 0.60 mIU/mL 01/04/19 19:26 Urine Color Yellow 01/05/19 10:12 Urine Appearance Cloudy 01/05/19 10:12 Urine pH 5.0 (5-9) 01/05/19 10:12 Ur Specific [place] 1.019 (1.010-1.030) 01/05/19 10:12 Urine Protein Negative (Negative) 01/05/19 10:12 Urine Ketones Negative (Negative) 01/05/19 10:12 Urine Blood Negative (Negative) 01/05/19 10:12 Urine Nitrate Negative (Negative) 01/05/19 10:12 Urine Bilirubin Negative (Negative) 01/05/19 10:12 Urine Urobilinogen Negative (Negative) 01/05/19 10:12 Ur Leukocyte Esterase 1+ (Negative) A 01/05/19 10:12 Urine WBC (Auto) Trace(0-5/hpf) (Absent) 01/05/19 10:12 Urine RBC (Auto) Trace(0-2/hpf) (Absent) 01/05/19 10:12 Ur Squamous Epith Cells Present (Absent) A 01/05/19 10:12 Urine Bacteria Absent (Absent) 01/05/19 10:12 Urine Glucose Negative (Negative) 01/05/19 10:12 Salicylates < 2.50 mg/dL (<30) 01/04/19 19:26 Urine Opiates Screen None detected (None Detect) 01/05/19 10:12 Acetaminophen < 15 mcg/mL 01/04/19 19:26 Ur Barbiturates Screen None detected (None Detect) 01/05/19 10:12 Ur Phencyclidine Scrn None detected (None Detect) 01/05/19 10:12 Ur Amphetamines Screen None detected (None Detect) 01/05/19 10:12 U Benzodiazepines Scrn Presumptive positive (None Detect) A 01/05/19 10:12 Urine Cocaine Screen None detected (None Detect) 01/05/19 10:12 U Cannabinoids Screen None detected (None Detect) 01/05/19 10:12 Serum Alcohol < 10 mg/dL (<10) 01/04/19 19:26 Continued Medication Management: Continue Outpt Medication Medications: Current Medications Acetaminophen (Tylenol Tab*) 650 mg PO Q4H PRN PRN Reason: for pain; or Temp >101 F Al Hydrox/Mg Hydrox/Simethicone (Maalox Plus*) 30 ml PO Q4H PRN PRN Reason: INDIGESTION Buspirone HCl (Buspar Tab *) 15 mg PO BID [facility] Last Admin: 01/07/19 09:21 Dose: 15 mg Duloxetine HCl (Cymbalta Cap*) 80 mg PO DAILY [facility] Last Admin: 01/07/19 09:21 Dose: 80 mg Multivitamins (Theragran Tab*) 1 tab PO DAILY [facility] Last Admin: 01/07/19 09:21 Dose: 1 tab - Discharge Plan Discharge Plan: Inpatient Hospitalization
--- NOTE | 2019-01-07 16:16 | PN ---
BSU: Group Therapy Note - Service Type Service Type: [id number] Group Psychotherapy - Group Participation Patient Participating in Group: Yes Level of Group Participation: Attentive, Spontaneously Participate Relatedness to Group: Well Related - Boris participated well and enjoyed the group. She asked appropriate questions and took notes.
[2019-01-07] MEDS ORDERED: hydrOXYzine HCL TAB* 50 MG ONE (23:39)
[2019-01-08] MEDS ORDERED: hydrOXYzine HCL TAB* 50 MG PO PRN (00:12)
[2019-01-08 08:12] VITALS: BP 105/69
--- NOTE | 2019-01-08 08:56 | DS ---
Subjective - Subjective Service Types: [address] [facility] Day Mgmt complex over 30 min Discharge Date: 01/08/19 Subjective: CC" I had a great talk yesterday" I had a great talk with Analia yesterday. Patient reports that she has a great support system and that she plans to go back to school. She reported feeling happy to learn coping skills in group. She slept overnight and no behavioral incidents. Justification for admission: Immediate Safety. CC " Fine" The patient was brought to [facility] by friends after she voiced suicidal ideation with a plan to hang herself with a cloth. She felt abandoned by her two friends who started dating and have not been including her in things anymore. She said that they were a large part of her support system and not having access to them anymore makes her fell more anxious and depressed. She thought about wrapping a cloth around her next to end her life and called to tell her friend of her plan. Denied access to firearms or stockpiles of medications. She reported adequate sleep and appetite. The patient denied homicidal ideation intent or plan. The patient denied auditory and/ or visual hallucinations. MDD Reported feeling depressed or having diminished interest in hobbies or interests which were present in the past , for most of the time, lasting more than 2 weeks. Lately having a feelings of being empty inside, feelings of hopelessness or worthless. Denied unintentional weight loss or appetite . Denied interruption of sleep or feeling tired throughout the day. Denied loss of energy or lack of motivation to complete tasks. Anxiety Reported having panic attacks in the past and worries most the time time. Bipolar Denied symptoms of adalgisa such as having many ideas at once. Denied increased talkativeness where no one can interrupt. Denied feeling irritable most of the time while having an persistent abundance of energy most of the day without the use of energy drinks, stimulants, or recreational drug use. Denied an increase in intensity in goal directed activities. Denied having the decreased need to sleep for days , having prolonged elevated heighted mood , or feeling on top of the world. Denied impulsive risky sexual encounters. Denied spending money recklessly , going on spending sprees wiping out savings. Denied impulsively traveling out of town or country, having super benítez, and unrealistic wealth or fame. Psychosis Does not endorse hearing things that other people do not hear or seeing things other people do not see. Denied feeling that TV is making references. Denied feeling that people are spying , following , or reading their thoughts. Phobias: Patient denied having excessive fear of a particular thing or situation. Eating disorders: Patient denied having excessive eating habits or feelings of guilt after eating. Denied repeated episodes of self induced vomiting after eating. PTSD Denied flashbacks, nightmares and avoidance of a prior traumatic event. PAST PSYCHIATRIC HISTORY: Prior Diagnosis : Major depressive disorder, Generalized anxiety disorder History of past Psychiatric Hospitalizations: No prior psychiatric admission. History of past suicide/homicide attempts : 1 past suicide attempts by overdosing with 30 Advil. Denied past homicidal incidents. Outpatient follow-up: [facility] Medications: Past trials of medications include prozac, lexapro with poor clinical response, no adverse reactions. Current medications include cymbalta 60mg daily and xanax Guardianship: None. FAMILY HISTORY: - Suicide: Cousin attempted suicide. - Mental illness: Denied a history of mental health in immediate family members. - Substance abuse: Denied substance abuse among family members. SUBSTANCE ABUSE HISTORY: Denied using tobacco, heroin and cocaine other illicit substances. Denied abusing pills not prescribed . Denied past Substance abuse treatment. - EtOH: drinks during social occasions once per week. 3-4 drinks at most 8 drinks. No prior DUI or blackouts. - Substance abuse treatment: Denied past substance abuse treatment SOCIAL HISTORY: She was raised by both parents and is from [facility]. 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 She is single no children and lives in [place] - Legal history: Denied - service history: Denied PAST MEDICAL HISTORY: Skin Eczema. - Allergies: Denied drug or other allergies. Physical Exam: Please see ED note Mental Status Exam on Admission APPEARANCE : 23 year old female who appears stated age. Patient is not malodourous, and appears to have fair hygiene and grooming. BEHAVIOR: Cooperative , calm EYE CONTACT: Fair PSYCHOMOTOR ACTIVITY: No psychomotor agitation or retardation. MOVEMENTS: No abnormal movements observed. SPEECH : Normal rate, rhythm, volume and tone. MOOD : " Fine" AFFECT : Type is anxious, Range is restricted, depth is shallow, Mood congruent, Stable THOUGHT PROCESS: formulated and organized in a logical, linear goal directed manner. No flight of ideas , neologism (made up words) , perseveration , tangential , loose associations , or circumstantiality. THOUGHT CONTENT: no delusions, preoccupations, obsessions, phobias or preoccupations. PERCEPTION: No current auditory or visual hallucinations. Doesnt appear to be responding to internal cues. No evidence of depersonalization , de-realization, or illusions SUICIDALITY Recent suicidal ideation with plan. HOMICIDALITY Denied homicidal ideation, intent or plan. Insight/judgment: Poor insight and judgment ORIENTATION: Oriented to self, location, and time. Diagnosis on Admission:Major depressive disorder, Generalized anxiety disorder Assessment: 23 year old female with history of Major depressive disorder, Generalized anxiety disorder came to the hospital for suicidal ideation with plan and was admitted to the BSU at [facility]. Diagnosis on Discharge: Major Depressive Disorder, Generalized Anxiety Disorder. Condition at the time of discharge: At the time of discharge patient showed improvement of sleep and appetite. The patient was not a danger to self or others. The patient denied suicidal ideation , intent or plan. The patient denied homicidal targets, ideation, intent or plan. This patient participated in psychosocial rehabilitation and gained some insight into problems. The patient gained insight into mental illness, triggers, and treatment. The patient took medication as prescribed. The patient denied side effects of medication and objective signs of side effects were not evident. Therapy Resources were offered to the patient. Patient was given a supply of prescriptions at the time of discharge. The patient plans to attend follow up care with the follow up arrangements that were discussed and put in place. Patient was asked to keep appointments as scheduled, take medication as prescribed, have routine follow up care with their primary care physician and refrain from any use of alcohol or drugs. Objective - Appearance Appearance: Well Developed/Nourished Dysmorphic Features: No Hygiene: Normal Grooming: Well Kept - Behavior Psychomotor Activities: Normal Exhibits Abnormal Movement: No - Attitude and Relatedness Attitude and Relatedness: Cooperative Eye Contact: Good - Speech Quality: Unpressured Latencies: Normal Quantity: Appropriate - Mood Patient's Decription of Mood: "Good" - Affect Observed Affect: Non-labile Affect Consistent with: Euthymia - Thought Process Patient's Thought Process: Coherent Thought Content: No Passive Wish, No Suicidal Planning, No Homicidal Ideation, No Paranoid Ideation - Sensorium Experiencing Hallucinations: No, Sensorium is Clear Type of Hallucinations: Visual: No, Auditory: No, Command: No - Level of Consciousness Level of Consciousness: Alert Orientation: Yes Intact, Yes Orientated to Time, Yes Orientated to Place, Yes Orientated to Person - Impulse Control Impulse Control: Intact - Insight and Judgement Insight and Judgement: Good - Group Participation Particating in Group Activities: Yes - Medication Management Medication Management Adherence: Yes Treatment Course & Assessment Clinical Course & Impression: Hospital course part A: 23 year old female with history of Major depressive disorder, Generalized anxiety disorder came to the hospital for suicidal ideation with plan and was admitted to the BSU at [facility]. Hospital course part B: Labs ordered included CBC, CMP, UDS, TSH, HBA1c, TSH, Toxicology screen, Urine analysis, and lipid profile. Labs were reviewed and did not require the need for further evaluation. Vital signs were monitored during the course of admission. MMPI was ordered and indicated features of anxiety and depression consistent with clinical presentation and treatment plan. The patient was admitted to the adult behavioral unit and placed on 15 minute check for safety. At a later time the patient was on Q30 minute observation and staff pass privileges. With those limits being extended , there were no occurrence of behavioral incidents. The patient did well on the unit and went to groups. Interacted with peers had adequate sleep and regular appetite. Tolerated medication changes without side effects. Group therapy and services were offered. The risks, benefits, and alternative treatment options were discussed as well as of the risks of refusing treatment. Treatment associated risks discussed. After this discussion and made an acknowledgement of this understanding. Follow up care appointments were put in place for follow up care within 7 days of discharge. Improvements in patient from the time of admission include: Improved affect, sleep and decrease in anxiety. No longer suicidal and no longer having feelings of hopelessness. The patient expressed readiness for discharge home. The patient presents with a broader range of affect, and the absence of depressed mood, delusions, perceptual disturbances. The patient denied suicidal and or homicidal ideation intent or plan. Overall, the patient responded well to inpatient treatment as evidenced by their report of strengthening of coping mechanisms, reduced distress, and more positive outlook on circumstances. Of note there was an improvement of recognizing how emotional state can effect mood and behavior. Safety precautions were put in place which included involving the patient and their family to closely monitor for changes in mental state. In addition, implementing follow up care, screening for the need to remove/securing firearms , weapons and stockpile of medications. Patient/ family instructed to immediately call 911 should any safety concerns arise. Patient advised of the lethality and dangerousness of combining medications with pain medications and/ or with alcohol and acknowledged this understanding. B-HCG is negative for current . She was informed of the risks her current treatment has on in the event that she becomes in the future and was advised to talk with her outpatient healthcare provider about starting or stopping medications during . The patient was advised of the 24 hour / 7 days a week availability of the emergency room and to call 911 in the event of an emergency such as being suicidal and/ or homicidal. The patient was informed of the contact information for [facility] Behavioral Services Unit, Suicide Prevention and Crisis Services, National Suicide Prevention Lifeline, [facility], Alcoholics Anonymous, and [facility]. Medications started included restarting home medications cymbalta and increasing to 80mg daily. Xanax was discontinued and buspar 15mg BID was started twice a day. She felt that she did not need to continue using xanax and that buspar helped with her anxiety. Family meeting took place and parents are in agreement with discharge plan. She plans to return to school. Patient will be discharged to her apartment at [place] and will be picked up by her parents. Follow up appointments at [facility]. Patient was informed of follow up appointment times. See more details for follow of care in discharge plan. Risk factors: Age, single, history of mental illness. Prior suicide attempt. Protective factors: Currently no suicidal ideation, intent or plan. Has strong support system. No history of service. Currently no feelings of hopelessness, not in an occupation of social isolation, doesnt have multiple medical conditions, no family history of suicide, doesnt have access to firearms. Doesnt have command hallucinations and or psychotic features at this time. No history of substance abuse. Not a anniversary of a loss of a loved one. No changes in relationship status, housing, job, or school. Currently future orientated. Patient engaged in treatment and compliant with medication. Vital Signs Temp Pulse Resp BP Pulse Ox 98.0 F 80 16 105/69 99 01/08/19 07:29 01/08/19 07:29 01/08/19 07:29 01/08/19 07:29 01/08/19 07:29 Laboratory Results WBC 6.0 10^3/uL (3.5-10.8) 01/04/19 19: RBC 4.67 10^6 /uL (3.70-4.87) 01/04/19 19:26 Hgb 14.2 g/dL (12.0-16.0) 01/04/19 19: Hct 42 % (33-41) H 01/04/19 19: MCV 90 fL (80-97) 01/04/19 19: MCH 31 pg (27-31) 01/04/19 19: MCHC 34 g/dL (31-36) 01/04/19 19: RDW 12 % (10.5-15) 01/04/19 19: Plt Count 297 10^3/uL (150-450) 01/04/19 19: MPV 7.2 fL (7.4-10.4) L 01/04/19 19: Neut % (Auto) 66.1 % 01/04/19 19: Lymph % (Auto) 24.7 % 01/04/19 19: [place] % (Auto) 7.0 % 01/04/19 19: Eos % (Auto) 1.8 % 01/04/19 19: Baso % (Auto) 0.4 % 01/04/19 19: Absolute Neuts (auto) 4.0 10^3/ul (1.5-7.7) 01/04/19 19: Absolute Lymphs (auto) 1.5 10^3/ul (1.0-4.8) 01/04/19 19: Absolute Monos (auto) 0.4 10^3/ul (0-0.8) 01/04/19 19: Absolute Eos (auto) 0.1 10^3/ul (0-0.6) 01/04/19 19: Absolute Basos (auto) 0 10^3/ul (0-0.2) 01/04/19 19: Absolute Nucleated RBC 0 10^3/ul 01/04/19 19: Nucleated RBC % 0 01/04/19 19: Sodium 138 mmol/L (135-145) 01/04/19 19:26 Potassium 4.2 mmol/L (3.5-5.0) 01/04/19 19:26 Chloride 105 mmol/L (101-111) 01/04/19 19:26 Carbon Dioxide 28 mmol/L (22-32) 01/04/19 19:26 Anion Gap 5 mmol/L (2-11) 01/04/19 19:26 BUN 12 mg/dL (6-24) 01/04/19 19:26 Creatinine 0.75 mg/dL (0.51-0.95) 01/04/19 19:26 Est GFR ( Amer) 116.9 (>60) 01/04/19 19:26 Est GFR (Non-Af Amer) 96.6 (>60) 01/04/19 19:26 BUN/Creatinine Ratio 16.0 (8-20) 01/04/19 19:26 Glucose 85 mg/dL (70-100) 01/04/19 19:26 Hemoglobin A1c 5.2 % (4.0-5.6) 01/07/19 07:40 Calcium 9.1 mg/dL (8.6-10.3) 01/04/19 19:26 Total Bilirubin 0.40 mg/dL (0.2-1.0) 01/04/19 19:26 AST 16 U/L (13-39) 01/04/19 19:26 ALT 11 U/L (7-52) 01/04/19 19:26 Alkaline Phosphatase 46 U/L (34-104) 01/04/19 19:26 Total Protein 6.9 g/dL (6.4-8.9) 01/04/19 19:26 Albumin 4.3 g/dL (3.2-5.2) 01/04/19 19:26 Globulin 2.6 g/dL (2-4) 01/04/19 19:26 Albumin/Globulin Ratio 1.7 (1-3) 01/04/19 19:26 Triglycerides 49 mg/dL 01/07/19 07:40 Cholesterol 177 mg/dL 01/07/19 07:40 LDL Cholesterol 95 mg/dL 01/07/19 07:40 HDL Cholesterol 72.0 mg/dL 01/07/19 07:40 TSH 1.16 mcIU/mL (0.34-5.60) 01/04/19 19:26 Beta HCG, Quant < 0.60 mIU/mL 01/04/19 19:26 Urine Color Yellow 01/05/19 10:12 Urine Appearance Cloudy 01/05/19 10:12 Urine pH 5.0 (5-9) 01/05/19 10:12 Ur Specific [place] 1.019 (1.010-1.030) 01/05/19 10:12 Urine Protein Negative (Negative) 01/05/19 10:12 Urine Ketones Negative (Negative) 01/05/19 10:12 Urine Blood Negative (Negative) 01/05/19 10:12 Urine Nitrate Negative (Negative) 01/05/19 10:12 Urine Bilirubin Negative (Negative) 01/05/19 10:12 Urine Urobilinogen Negative (Negative) 01/05/19 10:12 Ur Leukocyte Esterase 1+ (Negative) A 01/05/19 10:12 Urine WBC (Auto) Trace(0-5/hpf) (Absent) 01/05/19 10:12 Urine RBC (Auto) Trace(0-2/hpf) (Absent) 01/05/19 10:12 Ur Squamous Epith Cells Present (Absent) A 01/05/19 10:12 Urine Bacteria Absent (Absent) 01/05/19 10:12 Urine Glucose Negative (Negative) 01/05/19 10:12 Salicylates < 2.50 mg/dL (<30) 01/04/19 19:26 Urine Opiates Screen None detected (None Detect) 01/05/19 10:12 Acetaminophen < 15 mcg/mL 01/04/19 19:26 Ur Barbiturates Screen None detected (None Detect) 01/05/19 10:12 Ur Phencyclidine Scrn None detected (None Detect) 01/05/19 10:12 Ur Amphetamines Screen None detected (None Detect) 01/05/19 10:12 U Benzodiazepines Scrn Presumptive positive (None Detect) A 01/05/19 10:12 Urine Cocaine Screen None detected (None Detect) 01/05/19 10:12 U Cannabinoids Screen None detected (None Detect) 01/05/19 10:12 Serum Alcohol < 10 mg/dL (<10) 01/04/19 19:26 Merits Inpatient Hospitalization: No Clear for Discharge: Adequate Clinical Respons Discharge Planning - Discharge Planning Discharge Plan: Outpatient Follow Up Outpatient Program: Counseling/Psych Services at [place] Recommendations for Continuing Care: Medication Management Medications: Current Medications Acetaminophen (Tylenol Tab*) 650 mg PO Q4H PRN PRN Reason: for pain; or Temp >101 F Al Hydrox/Mg Hydrox/Simethicone (Maalox Plus*) 30 ml PO Q4H PRN PRN Reason: INDIGESTION Buspirone HCl (Buspar Tab *) 15 mg PO BID [facility] Last Admin: 01/07/19 21:10 Dose: 15 mg Duloxetine HCl (Cymbalta Cap*) 80 mg PO DAILY [facility] Last Admin: 01/07/19 09:21 Dose: 80 mg Hydroxyzine HCl (Atarax Tab*) 50 mg PO Q6H PRN PRN Reason: ANXIETY OR INSOMNIA Last Admin: 01/07/19 23:40 Dose: 50 mg Multivitamins (Theragran Tab*) 1 tab PO DAILY [facility] Last Admin: 01/07/19 09:21 Dose: 1 tab Discharge Planning: Prescriptions provided for discharge [x] Yes [] No Follow up care details as per social work arrangements. Patient response to discharge plan: [x] eager for discharge [] agreeable with discharge plan [] ambivalent about discharge [] disagrees with discharge today
[2019-01-08] MEDS: DULoxetine DR CAP* 20 MG CAP.DR PO SCH (09:34)
[2019-01-08] MEDS: Vitamin THERAPEUTIC TAB PO SCH (09:34)
[2019-01-08] MEDS: busPIRone TAB* 15 MG PO SCH (09:34)
== END 2019-01-08 11:00 | disposition home or self-care (01) | DRG 754 ==
LOC: ED 18:39 → BSU 01-05 09:13
PROVIDERS: ADMIT Psychiatry & Neurology Psychiatry; ATTEND Psychiatry & Neurology Psychiatry
PROC: GZHZZZZ Group Psychotherapy (ICD-10-PCS; principal; 2019-01-07)
DX: F32.9 Major depressive disorder, single episode, unspecified (principal); R45.851 Suicidal ideations; F41.1 Generalized anxiety disorder; Z91.5 Personal history of self-harm; Z72.89 Other problems related to lifestyle; Z81.8 Family history of other mental and behavioral disorders
CPT/HCPCS: 36415; 80053; 80061; 80307; 80320; 80329; 81003; 81015; 83036; 84443; 84702; 85025; 87086; 90853; 99222; 99233; 99238; 99283; A9270-GY; G0480

== ENCOUNTER 2019-03-08 03:10 | Inpatient (IN) | payer BC ==
[2019-03-08] MEDS ORDERED: Charcoal ACTIVATED* 25 GM/120 ML BTL PO ONE (03:30)
[2019-03-08] MEDS ORDERED: NS 0.9% 1000 ML** 2,000 ML IV ONE (03:30)
[2019-03-08 03:52] LABS: ABS Eosinophils 0.1 10^3/ul (0-0.6); ABS Lymphocytes 1.5 10^3/ul (1.0-4.8); ABS Monocytes 0.4 10^3/ul (0-0.8); ABS Neutrophils 4.6 10^3/ul (1.5-7.7); Hematocrit 41 % (35-47); Hemoglobin 14.1 g/dL (12.0-16.0); Mean Corpuscular HGB Conc 35 g/dL (31-36); Mean Corpuscular Hemoglobin 31 pg (27-31); Mean Corpuscular Volume 88 fL (80-97); Nucleated Red Blood Cells % 0.1; Platelet Count 294 10^3/uL (150-450); Red Blood Count 4.61 10^6 /uL (3.70-4.87); Red Cell Distribution Width 13 % (10-15); White Blood Count 6.6 10^3/uL (3.5-10.8)
--- NOTE | 2019-03-08 03:54 | ED ---
Substance Abuse/Use - HPI Summary HPI Summary: This patient is a 23 year old F presenting to [facility] accompanied by a friend after she ingested 20 of her 15mg Buspirone at 0215 this morning. She reports alcohol use, but denies drug use. When asked why she decided to overdose on her prescription medication she repeats that she is tired and is generally vague. - History Of Current Complaint Chief Complaint: EDOverdose Stated Complaint: "OVERDOSE" PER PT Time Seen by Provider: 03/08/19 03:26 Hx Obtained From: Patient Hx Last Menstrual Period: 07/07 Onset/Duration of Drug/ETOH Abuse: Hours Ingestion History: Type/Name Of Drug - buspirone, Amount Ingested - [id number] Overdose Characteristics: Oral Associated Signs And Symptoms: Negative - Allergies/Home Medications Allergies/Adverse Reactions: Allergies Allergy/AdvReac Type Severity Reaction Status Date / Time No Known Allergies Allergy Verified 03/08/19 03:17 PMH/Surg Hx/FS Hx/Imm Hx Endocrine/Hematology History: Denies: Hx Diabetes Cardiovascular History: Denies: Hx Hypertension Musculoskeletal History: Reports: Hx Tendonitis Sensory History: Reports: Hx Contacts or Glasses Denies: Hx Hearing Aid Opthamlomology History: Reports: Hx Contacts or Glasses Neurological History: Reports: Hx Headaches Psychiatric History: Reports: Hx Anxiety, Hx Depression Denies: Hx Eating Disorder, Hx of Violent Episodes Against Others - Surgical History Surgery Procedure, Year, and Place: Tooth Implant 2014 - Immunization History Date of Tetanus Vaccine: utd Date of Influenza Vaccine: unk Infectious Disease History: No Infectious Disease History: Denies: Traveled Outside the [place] in Last 30 Days - Family History Known Family History: Negative: Renal Disease - Social History Alcohol Use: Daily Alcohol Amount: liquor Hx Substance Use: No Substance Use Type: Reports: None Hx Tobacco Use: No Smoking Status (MU): Never Smoked Tobacco Review of Systems Positive: Fatigue. Negative: Fever Positive: Depressed All Other Systems Reviewed And Are Negative: Yes Physical Exam - Summary Physical Exam Summary: Appearance: Well-appearing, Well-nourished, lying in bed comfortably, awake and fairly alert but is slightly somnolent; is able to answer questions but is quite vague; vitals noted for tachycardia Skin: Warm, dry, no obvious rash Eyes: sclera anicteric, no conjunctival pallor ENT: mucous membranes moist, pharynx appears normal Neck: Supple, nontender Respiratory: Clear to auscultation, no signs of respiratory distress Cardiovascular: Tachycardic noted. Normal S1, S2. No murmurs. Normal distal pulses in tibial and radial bilaterally. Abdomen: Soft, nontender, normal active bowel sounds present Musculoskeletal: Normal, Strength/ROM Intact Neurological: A&Ox3, awake and alert, mentation is normal, speech is fluent and appropriate Psychiatric: affect is normal, does not appear anxious or depressed Triage Information Reviewed: Yes Vital Signs On Initial Exam: Initial Vitals Temp Pulse Resp BP Pulse Ox 97.9 F 112 16 125/82 97 03/08/19 03:10 03/08/19 03:10 03/08/19 03:10 03/08/19 03:10 03/08/19 03:10 Vital Signs Reviewed: Yes Diagnostics - Vital Signs Vital Signs Temp Pulse Resp BP Pulse Ox 03/08/19 03:10 97.9 F 112 16 125/82 97 - Laboratory Lab Results: Lab Results 03/08/19 Range/Units 03:37 WBC 6.6 (3.5-10.8) 10^3/uL RBC 4.61 (3.70-4.87) 10^6 /uL Hgb 14.1 (12.0-16.0) g/dL Hct 41 (35-47) % MCV 88 (80-97) fL MCH 31 (27-31) pg MCHC 35 (31-36) g/dL RDW 13 (10-15) % Plt Count 294 (150-450) 10^3/uL MPV 7.0 L (7.4-10.4) fL Neut % (Auto) 69.3 % Lymph % (Auto) 23.0 % [place] % (Auto) 6.3 % Eos % (Auto) 1.0 % Baso % (Auto) 0.4 % Absolute Neuts (auto) 4.6 (1.5-7.7) 10^3/ul Absolute Lymphs (auto) 1.5 (1.0-4.8) 10^3/ul Absolute Monos (auto) 0.4 (0-0.8) 10^3/ul Absolute Eos (auto) 0.1 (0-0.6) 10^3/ul Absolute Basos (auto) 0.0 (0-0.2) 10^3/ul Absolute Nucleated RBC 0.0 10^3/ul Nucleated RBC % 0.1 Result Diagrams: 03/08/19 03:37 03/08/19 03:37 Lab Statement: Any lab studies that have been ordered have been reviewed, and results considered in the medical decision making process. - EKG 0337 Cardiac Rate: Tachycardia - 100 BPM EKG Rhythm: Sinus Tachycardia Summary of EKG Findings: NSR at 100 BPM, P waves, QRS complex, and T waves are within normal limits, T waves and intervals are normal, no ischemic changes. This is a normal EKG. Course/Dx - Course Course Of Treatment: 23 year old F presenting to [facility] accompanied by a friend after she ingested 20 of her 15mg Buspirone at 0215 this morning. Patient is fairly alert but is slightly somnolent. She is able to answer questions but is quite vague. Bloodwork obtained with a lactic acid of 2.3. Patient is given 2000mls of IVF and 50gm of Charcoal Per poison control patient will be medically cleared at 9:00am. Patient will be signed out to Dr. Mendez awaiting soberity and E. - Diagnoses Provider Diagnoses: Suicide attempt by drug overdose Discharge - Sign-Out/Discharge Documenting (check all that apply): Sign-Out Patient Signing out patient TO: Kaushik Mendez - [facility] Patient Received Moderate/Deep Sedation with Procedure: No - Discharge Plan Condition: Improved Disposition: PSYCHIATRIC FACILITY-[facility] [place] - Billing Disposition and Condition Condition: IMPROVED Disposition: Psychiatric Facility [facility] [place] - Attestation Statements Document Initiated by Svetae: Yes Documenting Scribe: Isabel Garcia Provider For Whom Jose De Jesus is Documenting (Include Credential): Agusto Perez MD Scribe Attestation: IIsabel, scribed for Agusto Perez MD on 03/12/19 at 1843. Scribe Documentation Reviewed: Yes Provider Attestation: The documentation as recorded by the Isabel peterson accurately reflects the service I personally performed and the decisions made by me, Agusto Perez MD Status of Scribe Document: Viewed
[2019-03-08 04:08] LABS: ALT 11 U/L (7-52); AST 17 U/L (13-39); Albumin 4.6 g/dL (3.2-5.2); Albumin/Globulin Ratio 1.7 (1-3); Alkaline Phosphatase 47 U/L (34-104); Anion Gap 10 mmol/L (2-11); BUN/Creatinine Ratio 9.8 (8-20); Blood Urea Nitrogen 9 mg/dL (6-24); CO2 Carbon Dioxide 23 mmol/L (22-32); Calcium 9.4 mg/dL (8.6-10.3); Chloride 107 mmol/L (101-111); EGFR African American 92.4 (>60); EGFR Non-African American 76.3 (>60); Globulin 2.7 g/dL (2-4); Glucose 103 mg/dL (70-100); Potassium 3.8 mmol/L (3.5-5.0); Sodium 140 mmol/L (135-145); Total Protein 7.3 g/dL (6.4-8.9)
[2019-03-08 04:11] LABS: Acetaminophen < 15 mcg/mL; Alcohol 118 mg/dL (<10); Salicylate < 2.50 mg/dL (<30)
[2019-03-08 04:15] LABS: HCG Pregnancy < 0.60 mIU/mL
[2019-03-08 04:23] LABS: Urine Benzodiazepine Screen None Detected (None Detect); Urine Opiates Screen None Detected (None Detect)
[2019-03-08 04:36] LABS: Urine Appearance Cloudy; Urine Bacteria Absent (Absent); Urine Bilirubin Negative (Negative); Urine Blood Negative (Negative); Urine Color Yellow; Urine Glucose Negative (Negative); Urine Ketones Negative (Negative); Urine Nitrite Negative (Negative); Urine Protein Negative (Negative); Urine Red Blood Cell Absent (Absent); Urine Specific Gravity 1.008 (1.010-1.030); Urine Squamous Epithelial Cell Present (Absent); Urine Urobilinogen Negative (Negative); Urine White Blood Cell Trace(0-5/hpf) (Absent)
--- NOTE | 2019-03-08 07:25 | ED ---
Progress - Progress Note Progress Note: This patient was signed out from Dr. Perez to Dr. Mendez upon shift change at 07 :00 03/08/19 pending sobriety and MHE. Per mental health curriculum development specialist, Dr. Retana has decided that the patient should be admitted. The patient is agreeable with this plan. Course/Dx - Course Course Of Treatment: This patient was signed out from Dr. Perez to Dr. Mendez upon shift change at 07:00 03/08/19 pending sobriety and MHE. Per mental health curriculum development specialist, Dr. Retana has decided that the patient should be admitted. The patient is agreeable with this plan. - Diagnoses Provider Diagnoses: Suicide attempt by drug overdose - Provider Notifications Discussed Care Of Patient With: Renny Retana Time Discussed With Above Provider: 13:02 Instructed by Provider To: Other - Per mental health curriculum development specialist, Dr. Retana has decided that the patient should be admitted. Discharge - Sign-Out/Discharge Documenting (check all that apply): Patient Departure - admit, Receiving Sign- Out Receiving patient FROM: Agusto Perez Patient Received Moderate/Deep Sedation with Procedure: No - Discharge Plan Condition: Fair Disposition: PSYCHIATRIC FACILITY[place] [place] - Billing Disposition and Condition Condition: FAIR Disposition: Psychiatric Facility [facility] - Attestation Statements Document Initiated by Scribe: Yes Documenting Scribe: Roly Serrano Provider For Whom Jose De Jesus is Documenting (Include Credential): Kaushik Mendez MD Scribe Attestation: IRoly, scribed for Kaushik Mendez MD on 03/08/19 at 1802. Scribe Documentation Reviewed: Yes Provider Attestation: The documentation as recorded by the Roly peterson accurately reflects the service I personally performed and the decisions made by me, Kris Mendez MD Status of Scribe Document: Viewed
--- NOTE | 2019-03-08 08:09 | PN ---
ED Flex Patient Progress Note Date of Service: 03/08/19 Subjective: This is a 23 year-old F who is pending admission to [facility] / transfer to another psychiatric facility / discharge to home / or being observed secondary to OD on buspar. Pt. examined in room 6 at 0800. She is resting comfortably with eyes closed. 1:1 watch outside of door. Objective: Vitals: Most recent vital signs documented below. General NAD Laboratory: Current laboratory results documented below. Assessment: OD Plan: Pending medical clearance at 9 and MHE. Vital Signs Temp Pulse Resp BP Pulse Ox 97.9 F 112 16 125/82 97 03/08/19 03:10 03/08/19 03:10 03/08/19 03:10 03/08/19 03:10 03/08/19 03:10 Lab Results - Entire Visit 03/08/19 03/08/19 03/08/19 03:40 03:40 03:37 WBC RBC Hgb Hct MCV MCH MCHC RDW Plt Count MPV Neut % (Auto) Lymph % (Auto) Dickenson % (Auto) Eos % (Auto) Baso % (Auto) Absolute Neuts (auto) Absolute Lymphs (auto) Absolute Monos (auto) Absolute Eos (auto) Absolute Basos (auto) Absolute Nucleated RBC Nucleated RBC % Sodium Potassium Chloride Carbon Dioxide Anion Gap BUN Creatinine Est GFR ( Amer) Est GFR (Non-Af Amer) BUN/Creatinine Ratio Glucose Lactic Acid 2.3 H* Calcium Total Bilirubin AST ALT Alkaline Phosphatase Total Protein Albumin Globulin Albumin/Globulin Ratio Beta HCG, Quant Urine Color Yellow Urine Appearance Cloudy Urine pH 7.0 Ur Specific [place] 1.008 L Urine Protein Negative Urine Ketones Negative Urine Blood Negative Urine Nitrate Negative Urine Bilirubin Negative Urine Urobilinogen Negative Ur Leukocyte Esterase Trace A Urine WBC (Auto) Trace(0-5/hpf) Urine RBC (Auto) Absent Ur Squamous Epith Cells Present A Urine Bacteria Absent Hyaline Casts Present A Urine Glucose Negative Urine Ascorbic Acid * A Salicylates Urine Opiates Screen None detected Acetaminophen Ur Barbiturates Screen None detected Ur Phencyclidine Scrn None detected Ur Amphetamines Screen None detected U Benzodiazepines Scrn None detected Urine Cocaine Screen None detected U Cannabinoids Screen None detected Serum Alcohol 03/08/19 03/08/19 03:37 03:37 WBC 6.6 RBC 4.61 Hgb 14.1 Hct 41 MCV 88 MCH 31 MCHC 35 RDW 13 Plt Count 294 MPV 7.0 L Neut % (Auto) 69.3 Lymph % (Auto) 23.0 Dickenson % (Auto) 6.3 Eos % (Auto) 1.0 Baso % (Auto) 0.4 Absolute Neuts (auto) 4.6 Absolute Lymphs (auto) 1.5 Absolute Monos (auto) 0.4 Absolute Eos (auto) 0.1 Absolute Basos (auto) 0.0 Absolute Nucleated RBC 0.0 Nucleated RBC % 0.1 Sodium 140 Potassium 3.8 Chloride 107 Carbon Dioxide 23 Anion Gap 10 BUN 9 Creatinine 0.92 Est GFR ( Amer) 92.4 Est GFR (Non-Af Amer) 76.3 BUN/Creatinine Ratio 9.8 Glucose 103 H Lactic Acid Calcium 9.4 Total Bilirubin 0.40 AST 17 ALT 11 Alkaline Phosphatase 47 Total Protein 7.3 Albumin 4.6 Globulin 2.7 Albumin/Globulin Ratio 1.7 Beta HCG, Quant < 0.60 Urine Color Urine Appearance Urine pH Ur Specific [place] Urine Protein Urine Ketones Urine Blood Urine Nitrate Urine Bilirubin Urine Urobilinogen Ur Leukocyte Esterase Urine WBC (Auto) Urine RBC (Auto) Ur Squamous Epith Cells Urine Bacteria Hyaline Casts Urine Glucose Urine Ascorbic Acid Salicylates < 2.50 Urine Opiates Screen Acetaminophen < 15 Ur Barbiturates Screen Ur Phencyclidine Scrn Ur Amphetamines Screen U Benzodiazepines Scrn Urine Cocaine Screen U Cannabinoids Screen Serum Alcohol 118 H
[2019-03-08] MEDS ORDERED: Acetaminophen TAB* 325 MG PO PRN (14:16)
[2019-03-08] MEDS ORDERED: Al Hydrox/Mg Hydrox/Simet LIQ* 30 ML UDC PO PRN (14:16)
[2019-03-08] MEDS ORDERED: hydrOXYzine HCL TAB* 25 MG PO PRN (21:17)
--- NOTE | 2019-03-09 10:17 | HP ---
H&P (Free Text) History and Physical: Justification for admission: Immediate Safety. CC " I took pills" The patient was at a constitution party with her friends and saw a alison that she liked, go home with another girl. When she returned to her apartment around 2 AM, she was upset and took 20 pills of buspar. Shortly after she told a friend. And the patient was brought to [facility] by one of her friends. She reported that her mother has been in the [facility] lately and so she hasnt talked much to her , which causes her to become anxious. She find that her anxiety is better ever since getting a emotion support dog. Her mother is fly back from the [facility] this week. She has been spending most of her time finishing up her last credits at [employer] and plans to finish by March. She denied access to firearms or stockpiles of medications. She reported fair sleep and diminished appetite. The patient denied homicidal ideation intent or plan. The patient denied auditory and/ or visual hallucinations. MDD She reported not report prolonged feelings of depression. She denied nor having diminished interest in hobbies or interests which were present in the past. She denied feelings of being empty inside, feelings of hopelessness or worthless. Denied interruption of sleep or feeling tired throughout the day. Denied loss of energy or lack of motivation to complete tasks. Anxiety Reported having panic attacks in the past and frequently finds herself worrying most of the time. Bipolar She described having mood swings of highs and lows. Some days she will feel great and super happy and other days feel depressed. She reported having many ideas at once and increased talkativeness where no one can interrupt. Some day she feels irritable and has a increase in intensity in goal directed activities. Denied having the decreased need to sleep for days , having prolonged elevated heightened mood , or feeling on top of the world. Denied impulsive risky sexual encounters. Denied spending money recklessly , going on spending sprees wiping out savings. Denied impulsively traveling out of town or country, having super benítez, and unrealistic wealth or fame. Psychosis Does not endorse hearing things that other people do not hear or seeing things other people do not see. Denied feeling that TV is making references. Denied feeling that people are spying , following , or reading their thoughts. Phobias: Patient denied having excessive fear of a particular thing or situation. Eating disorders: Patient denied having excessive eating habits or feelings of guilt after eating. Denied repeated episodes of self induced vomiting after eating. PTSD Denied flashbacks, nightmares and avoidance of a prior traumatic event. PAST PSYCHIATRIC HISTORY: Prior Diagnosis : Major depressive disorder, Generalized anxiety disorder. History of past Psychiatric Hospitalizations: 1 past admission History of past suicide/homicide attempts : 2 past suicide attempts by overdosing with pills. Denied past homicidal incidents. Outpatient follow-up: [facility] Medications: Past trials of medications include prozac, lexapro with poor clinical response, no adverse reactions. Current medications include cymbalta 80mg daily and buspar 15mg BID Guardianship: None. FAMILY HISTORY: - Suicide: Cousin made a non lethal suicide attempt. - Mental illness: Denied a history of mental health in immediate family members. - Substance abuse: Denied substance abuse among family members. SUBSTANCE ABUSE HISTORY: Denied using tobacco, heroin and cocaine other illicit substances. Denied abusing pills not prescribed. Denied past Substance abuse treatment. - EtOH: drinks during social occasions once per week. 3-4 drinks at most 8 drinks in one setting . No prior DUI or blackouts. - Substance abuse treatment: Denied past substance abuse treatment SOCIAL HISTORY: She was raised by both parents and is from [facility]. 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 She is single has no children and lives in [place]. - Legal history: Denied - service history: Denied PAST MEDICAL HISTORY: Skin Eczema. - Allergies: Denied drug or other allergies. Physical Exam: Please see ED note Mental Status Exam on Admission APPEARANCE : 23 year old female who appears stated age. Patient is not malodourous, and appears to have fair hygiene and grooming. BEHAVIOR: Cooperative , calm EYE CONTACT: Fair PSYCHOMOTOR ACTIVITY: No psychomotor agitation or retardation. MOVEMENTS: No abnormal movements observed. SPEECH : increased rate MOOD : " anxious" AFFECT : Type is anxious, Range is restricted, depth is shallow, Mood congruent, Stable THOUGHT PROCESS: formulated and organized in a logical, linear goal directed manner. No flight of ideas , neologism (made up words) , perseveration , tangential , loose associations , or circumstantiality. THOUGHT CONTENT: no delusions, preoccupations, obsessions, phobias or preoccupations. PERCEPTION: No current auditory or visual hallucinations. Doesnt appear to be responding to internal cues. No evidence of depersonalization , de-realization, or illusions SUICIDALITY Recent suicidal ideation with attempt. HOMICIDALITY Denied homicidal ideation, intent or plan. Insight/judgment: Fair insight and judgment ORIENTATION: Oriented to self, location, and time. Diagnosis on Admission: Cyclothymic disorder with anxious distress , Borderline personality disorder. Assessment: 23 year old female came to the hospital by friends after making a suicide attempt by ingesting 20 buspar pills. Plan #Admit to B[facility], Q15 minute observation. Start regular diet. Encourage participation in activities on the milieu. #Patient evaluated in ED and was determined by the emergency room Physician to be medically stable for admission to the BSU. # Justification for Admission: For immediate safety per outlined in the [place] Mental Hygiene Code. # Voluntary admission. The patient requires inpatient admission at this time to assure safety, receive treatment and work toward stabilization. # Labs ordered: CBC, CMP, UDS, TSH, HBA1c, TSH, Toxicology screen, Urine analysis, and lipid profile. #B-HCG was ordered and results are negative. # Obtain collateral information once release is signed. # Collaboration with Social Work to assist with disposition and after care. # Restart cymbalta 80mg and buspar 15mg BID for anxiety # Start lamotrigine 25mg daily for cyclothymic disorder. Advised to monitor for skin changes. #Goals before discharge include:Reduce / eradicate suicidal ideation The risks, benefits, and alternative treatment options were discussed as well as of the risks of refusing treatment. After this discussion and an acknowledgement of this understanding was made. A risk/ benefit assessment of treatment was considered and discussed with the patient. When comparing the risks of treatment with the dangers of not receiving treatment, the benefits of treatment outweigh the treatment risks at this time. Risks of suicidal ideation , behavioral changes, dystonia, movement disorders, cardiac conduction changes , skin changes, serotonin syndrome, metabolic risks were among some of the risks discussed. Acetaminophen (Tylenol Tab*) 650 mg PO Q4H PRN PRN Reason: PAIN or TEMP > 101 F Al Hydrox/Mg Hydrox/Simethicone (Maalox Plus*) 30 ml PO Q4H PRN PRN Reason: INDIGESTION Buspirone HCl (Buspar Tab *) 15 mg PO BID [facility] Duloxetine HCl (Cymbalta Cap*) 80 mg PO DAILY [facility] Hydroxyzine HCl (Atarax Tab*) 25 mg PO Q4H PRN PRN Reason: ANXIETY Lamotrigine (Lamictal Tab(*)) 25 mg PO DAILY [facility] Multivitamins (Theragran Tab*) 1 tab PO DAILY [facility] Last Admin: 03/09/19 10:30 Dose: Not Given Laboratory Results WBC 6.6 10^3/uL (3.5-10.8) 03/08/19 03:37 RBC 4.61 10^6 /uL (3.70-4.87) 03/08/19 03:37 Hgb 14.1 g/dL (12.0-16.0) 03/08/19 03:37 Hct 41 % (35-47) 03/08/19 03:37 MCV 88 fL (80-97) 03/08/19 03:37 MCH 31 pg (27-31) 03/08/19 03:37 MCHC 35 g/dL (31-36) 03/08/19 03:37 RDW 13 % (10-15) 03/08/19 03:37 Plt Count 294 10^3/uL (150-450) 03/08/19 03:37 MPV 7.0 fL (7.4-10.4) L 03/08/19 03:37 Neut % (Auto) 69.3 % 03/08/19 03:37 Lymph % (Auto) 23.0 % 03/08/19 03:37 [place] % (Auto) 6.3 % 03/08/19 03:37 Eos % (Auto) 1.0 % 03/08/19 03:37 Baso % (Auto) 0.4 % 03/08/19 03:37 Absolute Neuts (auto) 4.6 10^3/ul (1.5-7.7) 03/08/19 03:37 Absolute Lymphs (auto) 1.5 10^3/ul (1.0-4.8) 03/08/19 03:37 Absolute Monos (auto) 0.4 10^3/ul (0-0.8) 03/08/19 03:37 Absolute Eos (auto) 0.1 10^3/ul (0-0.6) 03/08/19 03:37 Absolute Basos (auto) 0.0 10^3/ul (0-0.2) 03/08/19 03:37 Absolute Nucleated RBC 0.0 10^3/ul 03/08/19 03:37 Nucleated RBC % 0.1 03/08/19 03:37 Sodium 140 mmol/L (135-145) 03/08/19 03:37 Potassium 3.8 mmol/L (3.5-5.0) 03/08/19 03:37 Chloride 107 mmol/L (101-111) 03/08/19 03:37 Carbon Dioxide 23 mmol/L (22-32) 03/08/19 03:37 Anion Gap 10 mmol/L (2-11) 03/08/19 03:37 BUN 9 mg/dL (6-24) 03/08/19 03:37 Creatinine 0.92 mg/dL (0.51-0.95) 03/08/19 03:37 Est GFR ( Amer) 92.4 (>60) 03/08/19 03:37 Est GFR (Non-Af Amer) 76.3 (>60) 03/08/19 03:37 BUN/Creatinine Ratio 9.8 (8-20) 03/08/19 03:37 Glucose 103 mg/dL (70-100) H 03/08/19 03:37 Lactic Acid 2.0 mmol/L (0.5-2.0) 03/08/19 08:53 Calcium 9.4 mg/dL (8.6-10.3) 03/08/19 03:37 Total Bilirubin 0.40 mg/dL (0.2-1.0) 03/08/19 03:37 AST 17 U/L (13-39) 03/08/19 03:37 ALT 11 U/L (7-52) 03/08/19 03:37 Alkaline Phosphatase 47 U/L (34-104) 03/08/19 03:37 Total Protein 7.3 g/dL (6.4-8.9) 03/08/19 03:37 Albumin 4.6 g/dL (3.2-5.2) 03/08/19 03:37 Globulin 2.7 g/dL (2-4) 03/08/19 03:37 Albumin/Globulin Ratio 1.7 (1-3) 03/08/19 03:37 Beta HCG, Quant < 0.60 mIU/mL 03/08/19 03:37 Urine Color Yellow 03/08/19 03:40 Urine Appearance Cloudy 03/08/19 03:40 Urine pH 7.0 (5-9) 03/08/19 03:40 Ur Specific [place] 1.008 (1.010-1.030) L 03/08/19 03:40 Urine Protein Negative (Negative) 03/08/19 03:40 Urine Ketones Negative (Negative) 03/08/19 03:40 Urine Blood Negative (Negative) 03/08/19 03:40 Urine Nitrate Negative (Negative) 03/08/19 03:40 Urine Bilirubin Negative (Negative) 03/08/19 03:40 Urine Urobilinogen Negative (Negative) 03/08/19 03:40 Ur Leukocyte Esterase Trace (Negative) A 03/08/19 03:40 Urine WBC (Auto) Trace(0-5/hpf) (Absent) 03/08/19 03:40 Urine RBC (Auto) Absent (Absent) 03/08/19 03:40 Ur Squamous Epith Cells Present (Absent) A 03/08/19 03:40 Urine Bacteria Absent (Absent) 03/08/19 03:40 Hyaline Casts Present (Absent) A 03/08/19 03:40 Urine Glucose Negative (Negative) 03/08/19 03:40 Urine Ascorbic Acid * (Negative) A 03/08/19 03:40 Salicylates < 2.50 mg/dL (<30) 03/08/19 03:37 Urine Opiates Screen None detected (None Detect) 03/08/19 03:40 Acetaminophen < 15 mcg/mL 03/08/19 03:37 Ur Barbiturates Screen None detected (None Detect) 03/08/19 03:40 Ur Phencyclidine Scrn None detected (None Detect) 03/08/19 03:40 Ur Amphetamines Screen None detected (None Detect) 03/08/19 03:40 U Benzodiazepines Scrn None detected (None Detect) 03/08/19 03:40 Urine Cocaine Screen None detected (None Detect) 03/08/19 03:40 U Cannabinoids Screen None detected (None Detect) 03/08/19 03:40 Serum Alcohol 118 mg/dL (<10) H 03/08/19 03:37 Vital Signs 06/23/19 06/23/19 06/23/19 10:45 11:00 11:15 Temperature Pulse Rate 107 118 92 Respiratory 15 17 23 Rate Blood Pressure 113/68 120/78 (mmHg) O2 Sat by Pulse 97 99 98 Oximetry 03/08/19 03/08/19 03/08/19 11:45 12:00 12:15 Temperature Pulse Rate 97 91 97 Respiratory 16 16 30 Rate Blood Pressure 115/76 120/84 (mmHg) O2 Sat by Pulse 99 98 97 Oximetry 03/08/19 03/08/19 03/08/19 12:45 13:00 13:15 Temperature Pulse Rate 114 93 110 Respiratory 18 22 15 Rate Blood Pressure 121/80 117/76 (mmHg) O2 Sat by Pulse 97 97 98 Oximetry 03/08/19 03/08/19 03/08/19 13:45 14:00 14:29 Temperature 99.0 F Pulse Rate 110 102 99 Respiratory 19 17 16 Rate Blood Pressure 99/76 121/73 (mmHg) O2 Sat by Pulse 98 96 99 Oximetry 03/08/19 03/08/19 14:30 14:40 Temperature 98.6 F Pulse Rate 95 Respiratory 18 16 Rate Blood Pressure 123/74 (mmHg) O2 Sat by Pulse 98 Oximetry
[2019-03-09] MEDS: Vitamin THERAPEUTIC TAB PO SCH (10:30)
[2019-03-09] MEDS: DULoxetine DR CAP* 20 MG CAP.DR PO SCH (14:16)
[2019-03-09] MEDS: lamoTRIgine TAB(*) 25 MG PO SCH (14:17)
[2019-03-10] MEDS: Vitamin THERAPEUTIC TAB PO SCH (09:58)
[2019-03-10] MEDS: busPIRone TAB* 15 MG PO SCH ×2 (09:58→20:46)
[2019-03-10] MEDS: lamoTRIgine TAB(*) 25 MG PO SCH (09:58)
[2019-03-10] MEDS: DULoxetine DR CAP* 20 MG CAP.DR PO SCH (09:58)
--- NOTE | 2019-03-10 11:09 | PN ---
Subjective - Subjective Date of Service: 03/10/19 Service Type: 81080 Hosp care 35 min high complexity Subjective: Nursing Report: Patient was visible on unit, no chemical restraints or PRNs. Slept overnight without incident. Attending group activities. CC: "Fine Patient was seen and evaluated today. The patient reported feeling anxious when another peer yelled at her. She was able to cope with it and tolerate it without further issue. She reported having an adequate appetite and sleep. The patient reports attending and participating in day groups. Per nursing no behavioral issues or overnight events reported. Patient reported that she is tolerating medications without side effects. Objective - General Observations Appears Stated Age: Yes Stature: WNL Posture: WNL Eye Contact: Average Behavior/Activity: Accelerated - Interaction Observations Attitude Towards Examiner: Anxious Stated Mood: Anxious Affect: Full Speech Pattern/Tone: Appropriate Thought Process: Over Inclusive Perception: WNL Thought Content: WNL Hallucination Type: None Delusion Type: None - Cognitive Function Orientation: A&O x 4 Level of Consciousness: Awake Cognition: WNL - Medication Compliance Cooperative with Inpatient Medication Regimen: Yes - Group Participation Participates in Group Activities: Yes Assessment - Assessment Merits Inpatient Hospitalization: For Immediate Safety Clinical Impression: 23 year old female came to the hospital brought by friends after making a suicide attempt by ingesting 20 buspar pills. Plan - Plan Treatment Plan: Name: NEENA CELESTE Birthdate: 1995 [id number] Plan #Q30 minute observation with staff pass and computer access. # Voluntary admission. The patient requires inpatient admission at this time to assure safety, receive treatment and work toward stabilization. # Parents plan to visit Saturday or . # Collaboration with General Surgeon Alma Delia Salguero # Continue cymbalta 80mg and buspar 15mg BID for anxiety # Continue lamotrigine 25mg daily for cyclothymic disorder with plan to increase in 2 weeks in outpatient setting . Advised to monitor for skin changes. #Goals before discharge include:Reduce / eradicate suicidal ideation Tentative Discharge / Saturday Sodium 140 mmol/L (135-145) 03/08/19 03:37 Potassium 3.8 mmol/L (3.5-5.0) 03/08/19 03:37 BUN 9 mg/dL (6-24) 03/08/19 03:37 Creatinine 0.92 mg/dL (0.51-0.95) 03/08/19 03:37 Calcium 9.4 mg/dL (8.6-10.3) 03/08/19 03:37 AST 17 U/L (13-39) 03/08/19 03:37 ALT 11 U/L (7-52) 03/08/19 03:37 Vital Signs Temp Pulse Resp BP Pulse Ox 98.7 F 67 12 116/67 100 03/10/19 06:00 03/10/19 06:00 03/10/19 06:00 03/10/19 06:00 03/10/19 06:00 Continued Medication Management: Continue Outpt Medication Medications: Current Medications Acetaminophen (Tylenol Tab*) 650 mg PO Q4H PRN PRN Reason: PAIN or TEMP > 101 F Al Hydrox/Mg Hydrox/Simethicone (Maalox Plus*) 30 ml PO Q4H PRN PRN Reason: INDIGESTION Buspirone HCl (Buspar Tab *) 15 mg PO BID [facility] Last Admin: 03/10/19 09:58 Dose: 15 mg Duloxetine HCl (Cymbalta Cap*) 80 mg PO DAILY [facility] Last Admin: 03/10/19 09:58 Dose: 80 mg Hydroxyzine HCl (Atarax Tab*) 25 mg PO Q4H PRN PRN Reason: ANXIETY Lamotrigine (Lamictal Tab(*)) 25 mg PO DAILY [facility] Last Admin: 03/10/19 09:58 Dose: 25 mg Multivitamins (Theragran Tab*) 1 tab PO DAILY [facility] Last Admin: 03/10/19 09:58 Dose: 1 tab - Discharge Plan Discharge Plan: Inpatient Hospitalization
[2019-03-11] MEDS: busPIRone TAB* 15 MG PO SCH ×2 (09:33→19:54)
[2019-03-11] MEDS: DULoxetine DR CAP* 20 MG CAP.DR PO SCH (09:34)
[2019-03-11] MEDS: lamoTRIgine TAB(*) 25 MG PO SCH (09:34)
[2019-03-11] MEDS: Vitamin THERAPEUTIC TAB PO SCH (09:35)
--- NOTE | 2019-03-11 11:05 | PN ---
Subjective - Subjective Date of Service: 03/11/19 Service Type: 83587 Hosp care 35 min high complexity Subjective: Nursing Report: Patient was visible on unit, no chemical restraints or PRNs. Slept overnight without incident. Attending group activities. CC: "Okay Patient was seen and evaluated today in the common room. She went to groups today and ate breakfast. The patient reported she feels safe on the unit and is interacting with peers. She reported having an adequate appetite and sleep. The patient reports attending and participating in day groups. Per nursing no behavioral issues or overnight events reported. Patient reported that she is tolerating medications without side effects. Her parents are expected to come tomorrow around 11am. Objective - General Observations Appearance: Neat Appears Stated Age: Yes Stature: WNL Posture: WNL Eye Contact: Average Behavior/Activity: Accelerated - Interaction Observations Attitude Towards Examiner: Anxious Stated Mood: Anxious Affect: Bright Speech Pattern/Tone: Clear Thought Process: Coherent, Over Inclusive Perception: WNL Thought Content: WNL Hallucination Type: None Delusion Type: None - Cognitive Function Orientation: A&O x 4 Level of Consciousness: Awake Cognition: WNL - Medication Compliance Cooperative with Inpatient Medication Regimen: Yes - Group Participation Participates in Group Activities: Yes Assessment - Assessment Merits Inpatient Hospitalization: For Immediate Safety Clinical Impression: 23 year old female came to the hospital brought by friends after making a suicide attempt by ingesting 20 buspar pills. Plan - Plan Treatment Plan: Name: NEENA CELESTE Birthdate: 1995 [id number] Plan #Q30 minute observation with staff pass and computer access. # Voluntary admission. The patient requires inpatient admission at this time to assure safety, receive treatment and work toward stabilization. 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 No reported skin changes. # Last MMPI indicated features of anxiety and depression consistent with clinical presentation and treatment plan. #Goals before discharge include: Reduce / eradicate suicidal ideation Tentative Discharge Sodium 140 mmol/L (135-145) 03/08/19 03:37 Potassium 3.8 mmol/L (3.5-5.0) 03/08/19 03:37 BUN 9 mg/dL (6-24) 03/08/19 03:37 Creatinine 0.92 mg/dL (0.51-0.95) 03/08/19 03:37 Calcium 9.4 mg/dL (8.6-10.3) 03/08/19 03:37 AST 17 U/L (13-39) 03/08/19 03:37 ALT 11 U/L (7-52) 03/08/19 03:37 Vital Signs Temp Pulse Resp BP Pulse Ox 98.2 F 73 16 105/72 100 03/11/19 07:00 03/11/19 07:00 03/11/19 07:00 03/11/19 07:00 03/11/19 07:00 Continued Medication Management: Start Medication Medications: Current Medications Acetaminophen (Tylenol Tab*) 650 mg PO Q4H PRN PRN Reason: PAIN or TEMP > 101 F Al Hydrox/Mg Hydrox/Simethicone (Maalox Plus*) 30 ml PO Q4H PRN PRN Reason: INDIGESTION Buspirone HCl (Buspar Tab *) 15 mg PO BID [facility] Last Admin: 03/11/19 09:33 Dose: 15 mg Duloxetine HCl (Cymbalta Cap*) 80 mg PO DAILY [facility] Last Admin: 03/11/19 09:34 Dose: 80 mg Hydroxyzine HCl (Atarax Tab*) 25 mg PO Q4H PRN PRN Reason: ANXIETY Lamotrigine (Lamictal Tab(*)) 25 mg PO DAILY [facility] Last Admin: 03/11/19 09:34 Dose: 25 mg Multivitamins (Theragran Tab*) 1 tab PO DAILY [facility] Last Admin: 03/11/19 09:35 Dose: 1 tab - Discharge Plan Discharge Plan: Inpatient Hospitalization
--- NOTE | 2019-03-11 11:44 | PN ---
BSU: Group Therapy Note - Service Type Service Type: 32773 Group Psychotherapy - Cognitive Behavioral Group Therapy ( CBT):Patient was attentive and participatory in CBT programming this morning, and remained in good behavioral control. Patient expressed positive insights regarding relevant treatment interventions and goals.
[2019-03-12 08:32] VITALS: BP 129/88
--- NOTE | 2019-03-12 08:52 | DS ---
Subjective - Subjective Service Types: 05920 [facility] Day Mgmt complex over 30 min Discharge Date: 03/12/19 Subjective: CC: " Better" Patient looks forward to seeing her friends and dog. The patient was seen and evaluated before discharge today. The patient reported having adequate appetite and sleep. The patient reports attending and participating in day groups. Per nursing no behavioral issues or overnight events reported. Patient reported tolerating medications without side effects. Justification for admission: Immediate Safety. CC " I took pills" The patient was at a constitution party with her friends and saw a alison that she liked, go home with another girl. When she returned to her apartment around 2 AM, she was upset and took 20 pills of buspar. Shortly after she told a friend. And the patient was brought to [facility] by one of her friends. She reported that her mother has been in the [facility] lately and so she hasnt talked much to her , which causes her to become anxious. She find that her anxiety is better ever since getting a emotion support dog. Her mother is fly back from the [facility] this week. She has been spending most of her time finishing up her last [employer] at [employer] and plans to finish by March. She denied access to firearms or stockpiles of medications. She reported fair sleep and diminished appetite. The patient denied homicidal ideation intent or plan. The patient denied auditory and/ or visual hallucinations. MDD She reported not report prolonged feelings of depression. She denied nor having diminished interest in hobbies or interests which were present in the past. She denied feelings of being empty inside, feelings of hopelessness or worthless. Denied interruption of sleep or feeling tired throughout the day. Denied loss of energy or lack of motivation to complete tasks. Anxiety Reported having panic attacks in the past and frequently finds herself worrying most of the time. Bipolar She described having mood swings of highs and lows. Some days she will feel great and super happy and other days feel depressed. She reported having many ideas at once and increased talkativeness where no one can interrupt. Some day she feels irritable and has a increase in intensity in goal directed activities. Denied having the decreased need to sleep for days , having prolonged elevated heightened mood , or feeling on top of the world. Denied impulsive risky sexual encounters. Denied spending money recklessly , going on spending sprees wiping out savings. Denied impulsively traveling out of town or country, having super benítez, and unrealistic wealth or fame. Psychosis Does not endorse hearing things that other people do not hear or seeing things other people do not see. Denied feeling that TV is making references. Denied feeling that people are spying , following , or reading their thoughts. Phobias: Patient denied having excessive fear of a particular thing or situation. Eating disorders: Patient denied having excessive eating habits or feelings of guilt after eating. Denied repeated episodes of self induced vomiting after eating. PTSD Denied flashbacks, nightmares and avoidance of a prior traumatic event. PAST PSYCHIATRIC HISTORY: Prior Diagnosis : Major depressive disorder, Generalized anxiety disorder. History of past Psychiatric Hospitalizations: 1 past admission History of past suicide/homicide attempts : 2 past suicide attempts by overdosing with pills. Denied past homicidal incidents. Outpatient follow-up: [facility] Medications: Past trials of medications include prozac, lexapro with poor clinical response, no adverse reactions. Current medications include cymbalta 80mg daily and buspar 15mg BID Guardianship: None. FAMILY HISTORY: - Suicide: Cousin made a non lethal suicide attempt. - Mental illness: Denied a history of mental health in immediate family members. - Substance abuse: Denied substance abuse among family members. SUBSTANCE ABUSE HISTORY: Denied using tobacco, heroin and cocaine other illicit substances. Denied abusing pills not prescribed. Denied past Substance abuse treatment. - EtOH: drinks during social occasions once per week. 3-4 drinks at most 8 drinks in one setting . No prior DUI or blackouts. - Substance abuse treatment: Denied past substance abuse treatment SOCIAL HISTORY: She was raised by both parents and is from [place]. She currently a senior at [employer]. She is single has no children and lives in [place]. - Legal history: Denied - service history: Denied PAST MEDICAL HISTORY: Skin Eczema. - Allergies: Denied drug or other allergies. Physical Exam: Please see ED note Mental Status Exam on Admission APPEARANCE : 23 year old female who appears stated age. Patient is not malodourous, and appears to have fair hygiene and grooming. BEHAVIOR: Cooperative , calm EYE CONTACT: Fair PSYCHOMOTOR ACTIVITY: No psychomotor agitation or retardation. MOVEMENTS: No abnormal movements observed. SPEECH : increased rate MOOD : " anxious" AFFECT : Type is anxious, Range is restricted, depth is shallow, Mood congruent, Stable THOUGHT PROCESS: formulated and organized in a logical, linear goal directed manner. No flight of ideas , neologism (made up words) , perseveration , tangential , loose associations , or circumstantiality. THOUGHT CONTENT: no delusions, preoccupations, obsessions, phobias or preoccupations. PERCEPTION: No current auditory or visual hallucinations. Doesnt appear to be responding to internal cues. No evidence of depersonalization , de-realization, or illusions SUICIDALITY Recent suicidal ideation with attempt. HOMICIDALITY Denied homicidal ideation, intent or plan. Insight/judgment: Fair insight and judgment ORIENTATION: Oriented to self, location, and time. Diagnosis on Admission: Cyclothymic disorder with anxious distress , Borderline personality disorder. Diagnosis on Discharge: Cyclothymic disorder , Borderline personality disorder. Condition at the time of discharge: At the time of discharge patient showed improvement of sleep and appetite. The patient was not a danger to self or others. The patient denied suicidal ideation , intent or plan. The patient denied homicidal targets, ideation, intent or plan. This patient participated in psychosocial rehabilitation and gained some insight into problems. The patient gained insight into mental illness, triggers, and treatment. The patient took medication as prescribed. The patient denied side effects of medication and objective signs of side effects were not evident. Therapy Resources were offered to the patient. Patient was given a supply of prescriptions at the time of discharge. The patient plans to attend follow up care with the follow up arrangements that were discussed and put in place. Patient was asked to keep appointments as scheduled, take medication as prescribed, have routine follow up care with their primary care physician and refrain from any use of alcohol or drugs. Objective - General Observations Appearance: Neat Appears Stated Age: Yes Stature: WNL Posture: WNL Eye Contact: Average Behavior/Activity: WNL - Interaction Observations Attitude Towards Examiner: Cooperative Stated Mood: Euthymic, Anxious Affect: Full Speech Pattern/Tone: Clear Thought Process: Coherent Perception: WNL Thought Content: WNL Hallucination Type: None Delusion Type: None - Cognitive Function Orientation: A&O x 4 Level of Consciousness: Awake - Medication Compliance Cooperative with Inpatient Medication Regimen: Yes - Group Participation Participates in Group Activities: Yes Treatment Course & Assessment Clinical Course & Impression: Hospital course part A: 23 year old female came to the hospital brought by friends after making a suicide attempt by ingesting 20 buspar pills. Hospital course part B: Labs ordered included CBC, CMP, UDS, TSH, HBA1c, TSH, EKG, Toxicology screen, Urine analysis, and lipid profile. Labs were reviewed and did not require the need for further evaluation. Vital signs were monitored during the course of admission. The patient was admitted to the adult behavioral unit and placed on 15 minute check for safety. At a later time the patient was on Q30 minute observation and staff pass privileges. With those limits being extended , there were no occurrence of behavioral incidents. The patient did well on the unit and went to groups. Interacted with peers had adequate sleep and regular appetite. Tolerated medication changes without side effects. Group therapy and services were offered. The risks, benefits, and alternative treatment options were discussed as well as of the risks of refusing treatment. Treatment associated risks discussed. After this discussion made an acknowledgement of this understanding. Follow up care appointments were put in place for follow up care. The importance of monitoring for metabolic changes was discussed and acknowledgement of this understanding was made. Improvements in patient from the time of admission include: Improved affect, sleep and decrease in anxiety. No longer suicidal and no longer having feelings of hopelessness. The patient expressed readiness for discharge home. The patient presents with a broader range of affect, and the absence of depressed mood, delusions, perceptual disturbances. The patient denied suicidal and or homicidal ideation intent or plan. Overall, the patient responded well to inpatient treatment as evidenced by their report of strengthening of coping mechanisms, reduced distress, and more positive outlook on circumstances. Of note there was an improvement of recognizing how emotional state can effect mood and behavior. Safety precautions were put in place which included involving the patient and their family to closely monitor for changes in mental state. In addition, implementing follow up care, screening for the need to remove/securing firearms , weapons and stockpile of medications. Patient/ family instructed to immediately call 911 should any safety concerns arise. B-HCG is negative for current . She was informed of the risks associated with medication in . In the event that she becomes in the future and was advised to talk with her outpatient healthcare provider about starting or stopping medications during . The patient was advised of the 24 hour / 7 days a week availability of the emergency room and to call 911 in the event of an emergency such as being suicidal and/ or homicidal. The patient was informed of the contact information for [facility], Suicide Prevention and Crisis Services, National Suicide Prevention Lifeline, [facility], Alcoholics Anonymous, and [facility]. Medications started included resuming duloxetine 80mg daily for depression and buspar 15mg BID for anxiety, and starting lamotrigine 25mg daily for mood stabilization. Patient advised not to drink alcohol with medications as it can have dangerous interactions. Patient informed of risk of rash and to seek medical attention in the event she develops a rash. Patient informed not to abruptly stop medications before consulting with a medical professional. Family meeting took place before discharge. The family confirmed that the patient is at their baseline and is in agreement with the discharge plan. They were advised about the warning signs associated with decompensation and progression of mental illness. They were informed of the lethality of medication in event of overdose. The family confirmed no access to firearms. Collateral was obtained from her outpatient therapist, Sully Metclaf, who confirmed her baseline. Her therapist visited her on the unit. Patient was not assaultive or a behavioral disturbance during the course of admission. The patient showed improvement of hygiene and was able to carry out activities of daily living. She plans to finish school in March and apply to graduate school. Patient was picked up by her parents and will be discharged to live at her apartment. Follow up appointment with her therapist Sully Metcalf and Amanda Charles NP Patient informed of follow up appointment times. See more details for follow up care in the discharge plan. Risk factors: single, history of depression , prior suicide attempt. Protective factors: Currently no suicidal ideation, intent or plan. Has strong support system. No history of service. Currently no feelings of hopelessness, not in an occupation of social isolation, doesnt have multiple medical conditions, no family history of suicide, doesnt have access to firearms. Doesnt have command hallucinations and or psychotic features at this time. No current substance abuse. Not an anniversary of a loss of a loved one. No changes in relationship status, housing, job, or school. Currently future orientated. Patient engaged in treatment and compliant with medication. Vital Signs Temp Pulse Resp BP Pulse Ox 98.7 F 95 16 129/88 99 03/12/19 08:00 03/12/19 08:00 03/12/19 08:00 03/12/19 08:00 03/12/19 08:00 Sodium 140 mmol/L (135-145) 03/08/19 03:37 Potassium 3.8 mmol/L (3.5-5.0) 03/08/19 03:37 BUN 9 mg/dL (6-24) 03/08/19 03:37 Creatinine 0.92 mg/dL (0.51-0.95) 03/08/19 03:37 Calcium 9.4 mg/dL (8.6-10.3) 03/08/19 03:37 AST 17 U/L (13-39) 03/08/19 03:37 ALT 11 U/L (7-52) 03/08/19 03:37 Merits Inpatient Hospitalization: No Clear for Discharge: Adequate Clinical Respons Discharge Planning - Discharge Planning Discharge Plan: Outpatient Follow Up Outpatient Program: Private Clinician(s) Recommendations for Continuing Care: Medication Management Medications: Current Medications Acetaminophen (Tylenol Tab*) 650 mg PO Q4H PRN PRN Reason: PAIN or TEMP > 101 F Last Admin: 03/11/19 19:54 Dose: 650 mg Al Hydrox/Mg Hydrox/Simethicone (Maalox Plus*) 30 ml PO Q4H PRN PRN Reason: INDIGESTION Buspirone HCl (Buspar Tab *) 15 mg PO BID [facility] Last Admin: 03/11/19 19:54 Dose: 15 mg Duloxetine HCl (Cymbalta Cap*) 80 mg PO DAILY [facility] Last Admin: 03/11/19 09:34 Dose: 80 mg Hydroxyzine HCl (Atarax Tab*) 25 mg PO Q4H PRN PRN Reason: ANXIETY Lamotrigine (Lamictal Tab(*)) 25 mg PO DAILY [facility] Last Admin: 03/11/19 09:34 Dose: 25 mg Multivitamins (Theragran Tab*) 1 tab PO DAILY [facility] Last Admin: 03/11/19 09:35 Dose: 1 tab Discharge Planning: Prescriptions provided for discharge [x] Yes [] No Follow up care details as per social work arrangements. Patient response to discharge plan: [x] eager for discharge [] agreeable with discharge plan [] ambivalent about discharge [] disagrees with discharge today
[2019-03-12] MEDS: Vitamin THERAPEUTIC TAB PO SCH (09:25)
[2019-03-12] MEDS: DULoxetine DR CAP* 20 MG CAP.DR PO SCH (09:26)
[2019-03-12] MEDS: lamoTRIgine TAB(*) 25 MG PO SCH (09:26)
[2019-03-12] MEDS: busPIRone TAB* 15 MG PO SCH (09:26)
--- NOTE | 2019-03-12 11:29 | PN ---
BSU: Group Therapy Note - Service Type Service Type: [id number] Group Psychotherapy - Cognitive Behavioral Group Therapy ( CBT):Patient was attentive and participatory in CBT programming this morning, and remained in good behavioral control. Patient expressed positive insights regarding relevant treatment interventions and goals.
== END 2019-03-12 11:25 | disposition home or self-care (01) | DRG 753 ==
LOC: ED 03:10 → BSU 13:57
PROVIDERS: ADMIT Psychiatry & Neurology Psychiatry; ATTEND Psychiatry & Neurology Psychiatry
PROC: GZHZZZZ Group Psychotherapy (ICD-10-PCS; principal; 2019-03-11)
DX: F34.0 Cyclothymic disorder (principal); F41.1 Generalized anxiety disorder; F32.9 Major depressive disorder, single episode, unspecified; F60.3 Borderline personality disorder; L30.9 Dermatitis, unspecified; T43.592A Poisoning by other antipsychotics and neuroleptics, intentional self-harm, initial encounter; Y92.9 Unspecified place or not applicable; Z91.5 Personal history of self-harm; Z81.8 Family history of other mental and behavioral disorders; Z72.89 Other problems related to lifestyle
CPT/HCPCS: 36415; 80053; 80307; 80320; 80329; 81003; 81015; 83605; 84702; 85025; 87086; 90853; 93005; 99222; 99233; 99284; A9270-GY; G0480